=== PATIENT | male | born 1945 | race Caucasian/White ===

== ENCOUNTER → 2023-10-18 09:47 | Outpatient (REF) | payer MEDICARE, OTHER, SELFPAY | LOC: MRI 3T 09:47 | PROVIDERS: ATTENDING PHYSICIAN Urology; FAMILY PHYSICIAN Family Medicine | DX: C61 Malignant neoplasm of prostate (principal) | CPT/HCPCS: 72197; A9575 ==

== ENCOUNTER 2024-06-02 05:06 | Inpatient (IN) | payer MEDICARE, OTHER, SELFPAY ==
[2024-06-02] VITALS (22 sets, daily range): BP systolic 78–158; BP diastolic 36–96; BMI 27.0
--- NOTE | 2024-06-02 04:03 | EDRN ---
0402 epinephrine given
0403 bicarb given; Dioni machine stopped, no pulse - Dioni machine restarted
--- NOTE | 2024-06-02 04:05 | EDRN ---
Dr Cruz attempting to intubate pt
--- NOTE | 2024-06-02 04:09 | EDRN ---
Dioni machine stopped, pt has pulse.
--- NOTE | 2024-06-02 04:15 | EDRN ---
No pulses - CPR started
--- NOTE | 2024-06-02 04:17 | EDRN ---
Pt has a pulse
--- NOTE | 2024-06-02 04:19 | EDRN ---
Pt in vfib - shocked at 200J
--- NOTE | 2024-06-02 04:19 | EDRN ---
Shocked at 200J
--- NOTE | 2024-06-02 04:21 | EDRN ---
Pulse obtained by doppler
[2024-06-02 04:26] LABS: Glucose - Point of Care 253 mg/dl (70-99)
--- NOTE | 2024-06-02 04:31 | EDRN ---
Pulse weaker, obtainable by doppler.
[2024-06-02 04:32] LABS: INR 1.03; PT 13.8 Sec (11.4-14.6)
--- NOTE | 2024-06-02 04:32 | EDRN ---
Repeat portable CXR being done
--- NOTE | 2024-06-02 04:34 | EDRN ---
Doppler pulse strong
[2024-06-02 04:35] LABS: Hematocrit 40.7 % (39.0-52.0); Hemoglobin 13.8 g/dL (13.0-18.0); Mean Corp Hgb Conc. 33.9 g/dL (33.0-37.0); Mean Corpuscular Volume 100.2 fL (80.0-94.0); Mean Platelet Volume 9.1 fL (7.4-10.4); Platelet Count 183 10^3/uL (130-400); Red Blood Cell Count 4.06 10^6/uL (4.70-6.10); White Blood Cell Count 8.8 10^3/uL (4.8-10.8)
[2024-06-02 04:39] LABS: O2 Saturation % 91.6 % (94-98); PCO2 70 mmHg (35-48); PO2 86 mmHg (83-108)
[2024-06-02 04:42] LABS: pH 6.96 (7.35-7.45)
[2024-06-02 04:43] LABS: HCO3 15.7 mmol/L (21-28)
--- NOTE | 2024-06-02 04:45 | EDRN ---
Note: when pt's pulse returned, ice packs applied to b/l groin and armpits
[2024-06-02 04:49] LABS: ALT (SGPT) 101 U/L (0-50); AST (SGOT) 129 U/L (17-59); Albumin 3.6 g/dl (3.5-5.0); Alkaline Phosphatase 42 U/L (38-126); Blood Urea Nitrogen 15 mg/dl (9-20); Calcium 8.4 mg/dl (8.4-10.2); Carbon Dioxide 22 mmol/L (22-30); Chloride 100 mmol/L (98-107); Glucose 301 mg/dl (70-99); Potassium 3.1 mmol/L (3.5-5.1); Sodium 146 mmol/L (135-145); Total Bilirubin 0.3 mg/dl (0.2-1.3); Total Protein 5.6 g/dl (6.3-8.2); eGFR > 60.00
[2024-06-02 04:58] LABS: NT-proBNP 25.1 pg/ml; Troponin I 0.012 ng/ml
--- NOTE | 2024-06-02 05:04 | ED.GENMED ---
History of Present Illness
General
Chief Complaint: CODE
Source: family and ambulance crew
Exam Limitations: clinical condition
Time Seen by Provider: 06/02/24 04:13
History of Present Illness
History of Present Illness:
79-year-old male brought into the emergency department and cardiac arrest. According to EMS, patient was 'gurgling' in his sleep. Patient's came into the bathroom and found him unresponsive. called 911 and began CPR. Police came and
continued CPR. EMS was able to secure a Gildardo airway and started the Dioni machine. He received compressions and ACLS meds. Upon arrival he was PEA. ACLS protocols were continued and he was given epinephrine and bicarbonate. He did regain
pulses. We switched the tube from a Gildardo airway to an ET tube. Patient was given epinephrine and an epinephrine drip. He was started on propofol for sedation.
Past History
Past History
ED Past Medical History: HTN and Hypercholesterolemia
ED Past Surgical History: Cholecystectomy and Orthopedic
Social History
Tobacco: Other (Occasional cigar)
Alcohol: Occasional
Drug: None
Personal:
Living: with family
Review of Systems
Review of Systems
Allergies reviewed?: Yes
Unable to obtain full review of systems at this time due to: intubated
Other source history: family and ambulance crew
All Other Systems: Not applicable
Phy Exam
General Physical Exam
General Presentation: severe distress
General age: appears older than age
General Skin: warm and diaphoretic
General Habitus: elderly
Course
Orders/Labs/Results
Orders:
Orders
06/02/24 04:08
Complete Blood Count/With Diff Urgent
Comprehensive Metabolic Panel Urgent
NT-proBNP Urgent
PT/INR [Prothrombin Time] Urgent
Troponin I Urgent
06/02/24 04:10
Chest X-ray Portable [CR Chest Portable - 1 View] Stat
Comment:
Reason For Exam: s/p intubation
Reason Study Needs to be Portable: Unable to Transport
06/02/24 04:13
EKG [Electrocardiogram (*1)] Stat
Reason for Study: Other
Other Reason for Exam: s/p code
06/02/24 04:14
EKG- Treatment ONCE
06/02/24 04:26
EKG [Electrocardiogram (*1)] Stat
Reason for Study: Other
Other Reason for Exam: code
06/02/24 04:27
EKG- Treatment ONCE
06/02/24 04:32
ABG [Arterial Blood Gas] Stat
%Oxygen/Room Air: 100
06/02/24 04:39
Admit/Transfer Patient As Directed
Co-Sign Provider:
Level of Care: Inpatient admission
Assign to:: ICU
Physician / Group: hospitalist
Diagnosis: cardiac arrest
Reason for Hospitalization: cardiac arrest
Expected length of stay greater than two midnights?: Yes
ELOS- Estimated Length of Stay in days: 2
I certify the patient meets the requirements for IP care: Yes
PRN Pain Medication Management As Directed
May give lesser potent ordered pain med per pt: Yes
preference::
Protocol:: Medication orders for pain may be administered in a
manner that supports deferring to patient preference
when the pt is:
- Requesting an ordered lesser potent pain medication.
Least to most potent pain medications are defined
as: acetaminophen < NSAID < tramadol < opioids
(morphine, oxycodone, hydromorphone).
- Requesting a lesser dose of the same medication IF
ORDERED.
- Requesting a less intrusive route of administration
if both routes are prescribed by the provider (PO <
IV).
06/02/24 04:40
Code Status As Directed
Resuscitation Status: Full Code
06/02/24 05:00
Echo 2D MMode Color/Doppler Stat
Reason for Study: cardiac arrest
CT Head W/o Iv Contrast Stat
Comment:
Reason For Exam: change in mental status
Ventilator Initial Settings [RESP] Stat
Tidal Volume: 500
Rate: 16
FIO2: 100
PEEP: 5
Special Instructions: wean FiO2 to 0.3 as tolerated to keep O2 sats > 92%
06/02/24 05:22
0.9% Sodium Chloride 500 ml [Nss] 500 ml IV Q30M
Acetaminophen [Tylenol Oral Solution] 650 mg TUBE NOW STA
Acetaminophen [Tylenol/Feverall] 650 mg RECTAL Q6HPRN PRN
Amiodarone [Cordarone] 900 mg DEXTROSE 5% PVC-free BAG [D5W PVC-free BAG] 500 ml IV PER PROTOCOL
Initial Dose in mg/min:: 1
Duration of initial dose (hours):: 6
Subsequent dose in mg/min:: 0.5
Duration of subsequent dose (hours):: 18
Maximum dose in mg/min:: 1
Hold and notify provider if:: Heart rate < 60 BPM or SBP < 90 mmHg or MAP < 60 mmHg
Buspirone [Buspar] 30 mg TUBE NOW STA
Cisatracurium [Nimbex] 1 mg IV Q1HPRN PRN
Cisatracurium [Nimbex] 200 mg 0.9% Sodium Chloride 100 ml [Nss] 100 ml Empty Viaflex Container 250 ml [Viaflex Empty Container] 0 ml IV PER PROTOCOL
FentaNYL 1,000 MCG/100 ML [Sublimaze] 1,000 mcg in 100 ml IV PER PROTOCOL
Indication:: TTM Shivering Prot Step 2
Begin Infusion:: Other
Begin infusion when:: BSAS >/= 1 15 minutes after indicated step 1 bolus
Goal:: BSAS = 0, pain score </= 1, CPOT 0-2
Maximum dose in mcg/hr:: 300
Initial Dose in mcg/hr:: 25
Initial dose other:: initiate at dose indicated above OR titrate dose by 25 mcg/hr
Titration Instructions:: Titrate every 30 minutes if patient exhibits shivering (BSAS >/= 1) or
Titration Instructions:: signs of pain/discomfort (pain score >/= 2, CPOT >/= 3).
Titration Instructions:: Administer bolus dose and titrate by 25 mcg/hr.
Titration Instructions:: if BSAS >/= 1 30 minutes after beginning infusion with boluses,
Titration Instructions:: Proceed to Step 3. Continue to up titrate fentanyl as needed.
Taper Instructions:: If shivering and pain scores are at goal for 4 consecutive hours (BSAS = 0,
Taper Instructions:: pain score </= 1, CPOT 0-2): Decrease dose by 50 mcg/hr every 2 hours.
Taper Instructions:: When dose </= 50 mcg/hr may turn infusion off and consider as needed
Taper Instructions:: intermittent bolus doses only.
Notify provider:: immediately if pt exhibits: chest wall rigidity, hemodynamic instability,
Notify provider:: agitation/pain despite maximum dosing, pain when RASS below goal.
Additional Instructions:: if receiving sedation continue to up titrate analgesia first when available
Additional Instructions:: Patient MUST be mechanically ventilated.
Fentanyl Citrate/Pf [Sublimaze] 50 mcg IV [id number] PRN
NORepinephrine 4 MG/250 ML [Levophed] 4 mg in 250 ml IV PER PROTOCOL
Initial dose in mcg/min, then titrate:: 2
Titrate to keep:: MAP > 65 mmHg
Titrate by mcg/min:: 1-2 mcg/min
Frequency of titrations (minutes):: 5
Maximum dose in ICU in mcg/min:: 30
Maximum dose in IMU in mcg/min:: 8
Maximum dose in IVU in mcg/min:: 4
Begin to taper infusion when:: Remained at goal for 4hrs
Taper by mcg/min:: 1-2 mcg/min
Frequency of taper (minutes) if patient maintains goal:: 30
Taper to off?: Yes
If infusion off & no longer maintaining goal:: Contact Provider
Propofol 1,000,000 Mcg/100 ml [Diprivan] 1,000,000 mcg in 100 ml IV PER PROTOCOL
Indication:: TTM Shivering Prot Step 3
Begin Infusion:: Other
Begin infusion when:: BSAS >/= 1 30 minutes after beginning Fentanyl infusion with boluses
Goal:: BSAS 0 or RASS 0 to -2
Maximum dose in mcg/kg/min:: 50
Initial Dose in mcg/kg/min:: 10
Initial dose other:: Initiate at dose indicated above OR titrate dose by 5-10 mcg/kg/min
Titration Instructions:: Titrate by 5-10 mcg/kg/min every 5 minutes until BSAS 0 or RASS 0 to -2.
Titration Instructions:: when available, up titrate analgesia first.
Titration Instructions:: If BSAS >/=1 despite Propofol at maximum tolerated dose, proceed to Step 4.
Taper Instructions:: If BSAS or RASS is at or below goal for 4 consecutive hours decrease
Taper Instructions:: dose by 5-10 mcg/kg/min every 2 hours.
Over-sedation Instructions:: If CPOT 0-2 (at goal) AND RASS -3 to -5 (below goal) decrease sedative by
Over-sedation Instructions:: 50% first. If pain score remains at goal and RASS remains below goal in
Over-sedation Instructions:: 1 hour, decrease opioid infusion by 50%.
Notify provider:: immediately if patient exhibits signs/symptoms of propofol-related
Notify provider:: infusion syndrome.
Additional Instructions:: Patient MUST be mechanically ventilated.
06/02/24 05:22
Case Management Consult Once
Case Management Consult: Discharge Planning
Consult Notification Routine
Specialty to Notify: Neurology
Scrap Metal Burner Consult Urgent
Consulting Provider: Luis M Vargas
Was physician already notified: Yes
Reason for consult: cardiac arrest, PEA & VFIB arrest -> TTM
NEUROLOGY CONSULT Routine
Consulting Provider: Azeb Olivarez
Was physician already notified: No
Reason for consult: s/p cardiac arrest, unresponsive, intubated -> TTM
EEG Routine Routine
Reason for Exam: change in mental status
Prealbumin (Transthyretin) Routine
Triglycerides Routine
Comment: baseline levels with propofol infusion
Activity As Directed
Activity Level: Bedrest
Comment: obtain Sport bed, Maintain HOB 30 degrees
Arterial Line As Directed
Bedside Glucose Monitoring As Directed
Frequency: Other frequency
Other frequency: Q1 hour x 4 hours
Additional Instructions:: Contact provider to initiate Critical Care Glycemic Protocol:
- if glucose is greater than or equal to 160 mg/dL for 2 consecutive checks
OR
- if glucose is greater than or equal to 180 mg/dL once:
Catheter- Indwelling As Directed
Reason for insertion: I&O's Critical Care
Comment: temperature sensing Lomeli catheter with hourly urine output
Gastric Lavage As Directed
Route: Nasogastric Tube/ Orogastric Tube
Irrigant: Purified/Distilled Water
Amount in mls: 250-500ml iced water
Remove irrigant after __min: 10
Gastric lavage directions: - Chilled gastric lavage: instill 250-500mL iced water, clamp for 10-15 minutes
then connect gastric tube to suction.
- Repeat for total volume of 30mL/kg. Maximum 3 liters
- Discontinue once TTM device is initiated
Gastrointestinal Tubes As Directed
To suction?: No
Comment: insert nasogastric or orogastric tube
Head of Bed-Restrictions As Directed
Elevation Level: 30 degress
Frequency: At all times
INT (Intravenous Needle Therapy) As Directed
Comment: peripheral IV required, consider 2 peripheral IV lines
Intake/ Output As Directed
Frequency: q1h
Comment: hourly urine output
Neurological Checks As Directed
Frequency: q4h
Additional Instructions:: Obtain baseline, then every 4 hours
Notify MD As Directed
Notify physician if: BSAS >=1 despite maximum tolerated dose of propofol and proceeding to step 4 of shivering
protocol to change pain and sedation orders to deep sedation protocol and discontinue
current Fentanyl and Propofol orders.
Notify MD As Directed
Notify physician if: serum magnesium less than 3.0 mg/dL
Nursing to Place Non Medication Order As Directed
Physician Order: ABG every 12 hours x [address] Non Medication Order As Directed
Physician Order: order each lab below for Urgent every 6 hours x 6
CBC with Diff
Complete Metabolic Panel
Magnesium
Phosphorus
CK
CKMB
Troponin
Lactate
Pneumatic Compression Sleeves As Directed
Type: Knee high
Comment: bilateral
Pre-induction Neuromuscular Assessment As Directed
Pre-induction Neuromuscular Assessments: -Confirm Wen Agitation Sedation Scale (RASS) of -3 to -5
-Document:
--GSC (Fito Coma Scale)
--Corneal reflex
--Train of four
Shivering Protocol for Targeted Temperature Management As Directed
Instructions:: Use stepwise approach for management of shivering.
Bedside shivering assessment score (BSAS) frequency:: Q 30 minutes until target temperature achieved then Q 1
hour and PRN
Step 1:: Fentanyl or Meperidine intermittent bolus doses
If BSAS >=/ 1 15 minutes after bolus(es), proceed to Step 2.
Step 2:: Begin/increase Fentanyl infusion + continue Fentanyl boluses
If BSAS >/= 1 after 2 analgesic bolus doses and Fentanyl infusion on for 30 minutes,
proceed to Step 3.
Step 3:: Begin Propofol infusion + continue Fentanyl infusion + Fentanyl boluses
If BSAS >=/1 despite Propofol at maximum tolerated dose, proceed to Step 4.
Step 4:: NMBA intermittent bolus doses.
Contact provider to update pain and sedation orders/obtain orders for DEEP SEDATION.
If BSAS >/= 1 after 2 NMBA bolus doses within 3 hours, proceed to Step 5.
Step 5:: Begin NMBA infusion + continue NMBA boluses + deep sedation.
Continuous IV analgesia and sedation must be ordered.
Additional Instructions:: When beginning Step 4 (NMBA bolus doses), obtain orders for DEEP SEDATION and
discontinue Fentanyl and Propofol orders from steps 1, 2, and 3.
Skin Care As Directed
Type of Skin Care: skin checks every 2 hours
Specialty Mattress As Directed
Type of Mattress: Other
Other type of speciality mattress: Sport Bed
Targeted Temperature Management Cooling Phase As Directed
Goal Temp:: 91.4 F (33 C)
Directions: - Wrap patient in surface cooling pads and attach to temperature management device.
- Maintain patient at goal temperature for 24 hours.
- Once device is initiated, discontinue use of cooled fluids and gastric lavage unless directed to
continue.
Targeted Temperature Management Normothermia Phase As Directed
Active Normothermia Instructions:: Maintain surface cooling device and set temperature to 97.4 F for 48 hours
post rewarming.
Targeted Temperature Management Rewarming Phase As Directed
Rewarming Directions:: -Increase temp by 0.33 degrees F every hour per automatic rewarming mode until temp
reaches 97.4 degrees F
-If using continuous NMBA, turn off when temperature reaches 97.0 degrees F
-Once normothermia target temperature is achieved, wean sedation to maintain a RASS
level of 0 to -2, refer to Pain, Agitation, Sedation guidelines
-Discontinue previous serial labs then
-CMP, CBC, Mag, Phos, and Lactate every 4 hours x 6
-Stop electrolyte replacement 6 hours prior to rewarming (unless electrolyte levels
critical)
Vital Signs As Directed
Frequency: Other
Additional Instructions:: q30min x4 then q1h including core temp via TTM device
Weight As Directed
Frequency: Daily
DX Deep Vein Thrombosis Video Routine
06/02/24 Breakfast
NPO
Allow oral meds: No
Allow clear liquids: No
NPO with Ice Chips: No
Comment: may receive medications via tube if ordered
Prealbumin (Transthyretin) IN AM
Acetaminophen [Tylenol Oral Solution] 650 mg TUBE Q6
06/02/24 08:00
Buspirone [Buspar] 30 mg TUBE Q8
Carboxymethylcellulose [Refresh Celluvisc Gel] 1 drops OPHTH BID
Heparin 5,000 units SC Q12
Pantoprazole [Protonix IV] 40 mg IV DAILY
06/03/24 06:00
Prealbumin (Transthyretin) IN AM
CR Chest Portable - 1 View DAILY
Comment:
Reason For Exam: cardiac arrest
Reason Study Needs to be Portable: Patient Unstable
06/04/24 06:00
Prealbumin (Transthyretin) IN AM
CR Chest Portable - 1 View DAILY
Comment:
Reason For Exam: cardiac arrest
Reason Study Needs to be Portable: Patient Unstable
06/05/24 06:00
Triglycerides Q3D
Comment: every 72 hours while patient is on propofol
CR Chest Portable - 1 View DAILY
Comment:
Reason For Exam: cardiac arrest
Reason Study Needs to be Portable: Patient Unstable
06/08/24 06:00
Triglycerides Q3D
Comment: every 72 hours while patient is on propofol
06/11/24 06:00
Triglycerides Q3D
Comment: every 72 hours while patient is on propofol
Abnormal Lab Results
06/02/24 06/02/24 06/02/24
04:08 04:24 04:32
RBC 4.06 L 10^6/uL
(4.70-6.10)
MCV 100.2 H fL
(80.0-94.0)
MCH 34.0 H pg
(27.0-31.0)
pH 6.96 L*
(7.35-7.45)
pCO2 70 H mmHg
(35-48)
HCO3 15.7 L* mmol/L
(21-28)
ABG O2 Sat (Measured) 91.6 L %
(94-98)
Sodium 146 H mmol/L
(135-145)
Potassium 3.1 L mmol/L
(3.5-5.1)
Glucose 301 H mg/dl
(70-99)
AST 129 H U/L
(17-59)
ALT 101 H U/L
(0-50)
Total Protein 5.6 L g/dl
(6.3-8.2)
POC Glucose 253 H mg/dl
(70-99)
06/02/24 04:08
06/02/24 04:08
Vital Signs
Initial and Last Documented VS:
Initial Vital Signs
BP
88/57
06/02/24 04:15
Last Documented Vital Signs
Temp Pulse Resp BP Pulse Ox
95.9 F L 93 21 113/73 97
06/02/24 04:41 06/02/24 05:00 06/02/24 04:55 06/02/24 05:00 06/02/24 04:55
Procedures
Intubations
Procedure completed by: me
Method of Intubation: glidescope
Tube size (cm): 7.5
Placement confirmed by: auscutation, CXR, capnography and direct visualization
Breath sounds after intubation: equal
Intubation complications: no complications
MDM/Problems Addressed
Differential Diagnosis Includes:
Pulmonary embolus, ACS, metastatic to, tablet deficiency
Chronic conditions affecting care:
Prostate cancer, high blood pressure, hyperlipidemia, smoker
*EKG
Interpreted by ED Provider?: Yes
EKG Intrepretation Date: 06/02/24
Rate: tachycardiac
Rhythm: sinus tachycardia
Page: left axis deviation
QRS Pattern: right bundle branch block
Ischemia: non-specific ST changes
*County Extension Agent Interpretation
Interpretation: abnormal
Heart Rate: 122
Rhythm: sinus arrhythmia and sinus tachycardia
*Critical Care Note
Total Time (30-74mins, 75-104mins- exclusive of procedures): Critical care statement: (Critical care statement: A total of 40 minutes of critical care time was provided for this patient. This time is separate from time utilized to perform the
aforementioned documented procedures. Aggregate critical care time includes only time during which I was engaged in work directl)
Data Reviewed
Review of Other/Old Records Reveals: Labs and Records
Source: family and ambulance crew
Update Note
Update Note:
Spoke with Dr. Brooke, district captain who agrees with the plan to start cooling protocol. Cooling protocol was started. Patient admitted to the hospital service to the ICU
06/02/[address] scan shows anoxic brain injury
ED Attending Note
-
Portions of this chart may have been created with voice recognition software.� Occasional wrong word or��sound alike� substitutions may have occurred due to the inherent limitations of voice recognition software.
Discharge Plan
Departure
Patient Disposition: Admit
Date of Disposition: 06/02/24
Time of Disposition: 05:14
Admit to: ICU
Presentation/result/management discussed w/ accepting MD/DO: Hospitalist
Condition: Serious
Discharge Problem:
Cardiac arrest
Interventions
Interventions:
*Risk Screen - Suicide Last Done: 06/02/24 04:04
*General Assessment Last Done: 06/02/24 04:04
*Neglect/Abuse Screening Last Done: 06/02/24 04:04
*ED COVID-19 Vaccine History Last Done: 06/02/24 04:04
ED- Cardiac Assessment Last Done: 06/02/24 04:03
ED- Pulmonary Assessment Last Done: 06/02/24 04:03
--- NOTE | 2024-06-02 05:15 | PTCARENOTE ---
Patient received from ED, unresponsive. Pupils pin point, equal and reactive. Posturing noted. NSR on monitor, no edema noted. Blood pressure as documented. Palpable pulses. No edema noted. #8 ETT at 22 cm at the center, AC 16TV 500 FIO2 80%
peep 5. lugs coarse, crackles right base. Salme sump in right nare draining dark brown. Abdomen soft. thermister samriento draining yellow. #18 g in LAC with epi infusing as documneted. #20 g in RAC with Propofol infuisng as documented. CHG bath
given. Sales Training Representative GANG PLANK WORKMAN at bedside
[2024-06-02] MEDS: VERSED 5 MG IV (05:56)
[2024-06-02] MEDS: SUBLIMAZE 50 MCG IV ×4 (05:58→21:08)
[2024-06-02] MEDS: BUSPAR 30 MG TUBE ×3 (06:06→15:31)
[2024-06-02] MEDS: TYLENOL ORAL SOLUTION 650 MG TUBE ×3 (06:06→17:57)
[2024-06-02 06:09] LABS: % Basophils 0.6 % (0-2); % Eosinophils 1.4 % (0-6); % Immature Granulocytes 3.9 % (0-0.5); % Monocytes 5.1 % (1.7-9.3); Absolute Basophils 0.1 10^3/uL (0-0.2); Absolute Eosinophils 0.1 10^3/uL (0-0.7); Absolute Immature Granulocytes 0.3 10^3/uL (0-0.05); Absolute Lymphocytes 5.1 10^3/uL (1.2-3.4); Absolute Monocytes 0.5 10^3/uL (0.1-0.6); Absolute Neutrophils 2.8 10^3/uL (1.4-6.5); Nucleated Red Blood Cells % 1.2 % (-)
[2024-06-02] MEDS: TYLENOL ORAL SOLUTION TUBE (06:11)
[2024-06-02] MEDS: DIPRIVAN 100 IV ×4 (06:12→21:49)
--- NOTE | 2024-06-02 06:24 | W.PN.UPDATE ---
Update Note
Progress Note Update
Operation/Procedure: right radial arterial line placement
Consent for operation or procedure: Emergent need due to patient condition - need for invasive monitoring per protocol
Indications: Hemodynamic monitoring
After properly positioning the patient's wrist in the standard fashion, the site was prepped and draped in a sterile fashion. The radial artery was entered, noting bright red, pulsatile flow. A guidewire was easily inserted, the needle removed,
and the catheter was then placed using the Seldinger technique. The guidewire was removed, with good flow present. The catheter was then connected to the transducer with a good waveform noted. The catheter was secured with suture and an occlusive
dressing was placed after properly cleaning and prepping the site.
Complications: The patient tolerated the procedure well and no complications were noted.
Estimated Blood Loss: minimal
Plan: Arterial line to remain in place for hemodynamic monitoring.
[2024-06-02] MEDS: LEVOPHED 250 IV ×2 (06:34→14:31)
[2024-06-02] MEDS: CORDARONE 103 MG IV (06:35)
[2024-06-02] MEDS: SUBLIMAZE 100 IV ×2 (06:35→21:49)
[2024-06-02 06:51] LABS: B.E. -15.5 mmol/L; O2 Saturation % 99.8 % (94-98); PCO2 39 mmHg (35-48); PO2 319 mmHg (83-108)
[2024-06-02 06:55] LABS: % Basophils 0.6 % (0-2); % Eosinophils 1.3 % (0-6); % Immature Granulocytes 3.3 % (0-0.5); % Lymphocytes 18.5 % (20.5-51.1); % Monocytes 2.7 % (1.7-9.3); % Neutrophils 73.6 % (42.2-75.2); Absolute Basophils 0.1 10^3/uL (0-0.2); Absolute Eosinophils 0.2 10^3/uL (0-0.7); Absolute Immature Granulocytes 0.5 10^3/uL (0-0.05); Absolute Lymphocytes 2.7 10^3/uL (1.2-3.4); Absolute Monocytes 0.4 10^3/uL (0.1-0.6); Absolute Neutrophils 10.8 10^3/uL (1.4-6.5); Hematocrit 41.5 % (39.0-52.0); Hemoglobin 14.6 g/dL (13.0-18.0); Mean Corp Hgb Conc. 35.2 g/dL (33.0-37.0); Mean Corpuscular Volume 96.7 fL (80.0-94.0); Mean Platelet Volume 8.8 fL (7.4-10.4); Nucleated Red Blood Cells % 0.2 % (-); Platelet Count 272 10^3/uL (130-400); Red Blood Cell Count 4.29 10^6/uL (4.70-6.10); Red Cell Dist. Width 13.2 % (11.5-14.5); White Blood Cell Count 14.6 10^3/uL (4.8-10.8)
[2024-06-02 06:56] LABS: pH 7.13 (7.35-7.45)
--- NOTE | 2024-06-02 07:06 | CON.INTV ---
Addendum entered and electronically signed by Rachel Garcia, 06/02/24 13:35:
Add insulin gtt for glycemic control
Original Note:
Consultation
Consultation Request
Date/Time Consultation Requested: 06/02/24
Date/Time Consultation Performed: 06/02/24
Performing Provider: Jose
Reason for Consultation: Cardiac arrest
Medical History
-
History of Present Illness:
Patient is a 79-year-old male with previous history of hypertension, hyperlipidemia presenting from home to ER with unresponsiveness during sleep. Was found by to be gurgling, pulseless and apneic. reportedly was performing CPR, on
arrival by EMS she had discontinued. CPR resumed by EMS, noted to be PEA arrest which then converted to V-fib arrest. Was defibrillated total of 3 times with ROSC prior to transport. ROSC lasted 5 minutes CPR then resumed. Patient reportedly had
a difficult airway, intubations were attempted and route, was not successfully intubated, LMA placed. Upon arrival to ER, patient was continued PEA arrest. ROSC reachieved. Intubated in ER, now on pressors. Admitted to ICU. TTM protocol
initiated.
Past Medical History
Past Medical History: Other (see list below)
Social History
Tobacco: Non-smoker
Alcohol: None
Drug: None
Family History
Family History: Reviewed & Not Pertinent
Allergies / Home Medications
Allergies
Allergy/AdvReac Type Severity Reaction Status Date / Time
erythromycin base Allergy Rash Verified 07/04/23 12:58
Home Medications
�Medication �Instructions �Recorded �Confirmed �Last Taken �Type
atorvastatin 20 mg tablet 20 mg PO QPM 02/20/11 06/02/24 02/19/11 History
amlodipine 5 mg tablet 5 mg PO DAILY 06/02/24 06/02/24 Unknown History
celecoxib 100 mg capsule (Celebrex) 100 mg PO DAILY 06/02/24 06/02/24 Unknown History
hydrochlorothiazide 25 mg tablet 25 mg PO DAILY 06/02/24 06/02/24 Unknown History
irbesartan 300 mg tablet 300 mg PO DAILY 06/02/24 06/02/24 Unknown History
Review of Systems
-
Unable to Obtain full review of systems at this time due to: Acuity and Patient Intubation
History Source: Family, Transfer Record and Physician
Vitals / Labs / Diagnostic Testing
Vital Signs
Temp Pulse Resp BP Pulse Ox
95.3 F L 93 21 113/73 99
06/02/24 06:22 06/02/24 05:00 06/02/24 04:55 06/02/24 05:00 06/02/24 06:59
Laboratory Results
06/02/24 06/02/24 06/02/24
04:08 04:32 06:30
PT 13.8
INR 1.03
pH 6.96 L* 7.13 L*
pCO2 70 H 39
pO2 86 319 H
HCO3 15.7 L* 13.0 L*
O2 Delivery Level
Diagnostic Testing:
Physical Exam
-
HEENT: Normocephalic, Anicteric and Moist Mucous Membranes
Cardiovascular: S1/S2 and Regular Rhythm
Respiratory: Clear, Non-Labored Respirations and Other (ETT)
GI: Soft, Non Distended and Tender
Neurology: Other (sedated/intubated/cooled)
Skin: Dry and Other (cold, under TTM)
General: Comfortable and Other (critically ill, on vent)
Assessment
-
Patient is a 79-year-old male with previous history of hypertension, hyperlipidemia presenting from home to ER with unresponsiveness during sleep. Was found by to be gurgling, pulseless and apneic. reportedly was performing CPR, on
arrival by EMS she had discontinued. CPR resumed by EMS, noted to be PEA arrest which then converted to V-fib arrest. Was defibrillated total of 3 times with ROSC prior to transport. ROSC lasted 5 minutes CPR then resumed. Patient reportedly had
a difficult airway, intubations were attempted and route, was not successfully intubated, LMA placed. Upon arrival to ER, patient was continued PEA arrest. ROSC reachieved. Intubated in ER, now on pressors. Admitted to ICU. TTM protocol
initiated.
Acute cardiac arrest s/p CPR/intubation/Shock x 3, VF/PEA with ROSC
Intubated for airway protection, TTM initiation 06/02/24
Unresponsiveness
Shock on pressors, septic vs cardiogenic
Metabolic acidosis, pH 6.9
Leukocytosis, 14.6
Hypokalemia
Hyperglycemia
Lactic acidosis
Elevated troponin
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
Prostate cancer
History of torn meniscus of right knee
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
Essential (primary) hypertension
Mixed hyperlipidemia
Primary osteoarthritis
Kidney stones
Diverticulosis
Colon/gastric polyps; hyperplastic prepyloric polyp w/ intestinal metaplasia/vascular ectasia in fundus
Bilat inguinal hernia repairs w/ mesh 02/2011 Dr. Rowell
Laminectomy
fx nose repair
cholecystectomy 1997
Plan
s/p cardiac arrest, posturing noted post ROSC
CT Head without acute findings, given prolonged downtime, could be at risk for anoxia
Neuro eval ongoing
TTM management
Pain/sedation: Fent/prop gtt, nimbex and buspar for shivering
RASS goals: -4 to -5 for deep cooling
Hemodynamically unstable, requiring pressors/low dose
Drips: levophed @8, amiodarone gtt
VF arrest reportedly, cards eval/appreciate input
Cardiac history reviewed--HTN
Prior ECHO 2018 reviewed indicating normal function
Repeat ECHO showing RV dysfunction
Add IV heparin without bolus, presumptive PE
Hold home meds while on pressors
Monitor on telemetry
Intubated through cardiac arrest, reportedly difficult airway, LMA -> ETT in ER
No prior known history of lung disease
Vent setting reviewed: AC 500/20/40/5+
Hold on SBT during TTM
Supplemental O2 as indicated to maintain sats > 89%
CXR/CT reviewed indicating no acute findings
No CT for confirmation of PE, can obtain d-dimer/LE duplex
NPO, for now
NGT eventually for meds, hold on feeds
Laboratory Equipment Installer recommendations
Aspiration precautions, HOB > 30 degrees
GI prophylaxis if indicated for mechanical ventilation >48 hours, prior history of GERD, stress ulcer formation in the critically ill
JORGE present, creat bump to 1.4 from 1.2
Could be ATN/prerenal
No known history of renal disease
Void trials
Follow urine output, critical I/Os
Replete electrolytes as needed
Acid/base status: met acidosis, given 1 amp bicarb, started on bicarb gtt
Initial pH 6.9 repeat 7.1, repeat ABG
Serial labs
No signs/symptoms suspicious for infectious etiology at this time
Observe off antibiotics for now
Cultures sent/pending
Blood
MRSA screen negative in past
Follow fever trend, WBC count
Lactate elevated on admission, continue to trend until <2
CBC stable, no signs of bleeding or coagulopathy.
DVT prophylaxis as assessed based on risk, including mechanical SCDs
Can transfuse if indicated for Hb <7, plt < 10
INR WNL
No prior h/o known diabetes or thyroid disease
Monitor accuchecks PRN/SS coverage if needed
Hyperglycemia is noted, likely has diabetes, HbA1c pending
Family Discussions
Overall prognosis appears poor given events, patient remains full code
Updated family at bedside during rounds, patient does have advanced directives indicating he does not wish to be prolonged on mechanical support if his prognosis is poor
I have encouraged them to make a decision on ultimate plan of care should he not recover neurologically
Diagnostic Data
Chest X-Ray: low lung volumes, bilateral patchy opacities, ETT in position, no acute findings
02/20/18- No active cardiopulmonary disease.
CT Scan:
Echo: 02/25/18 - Normal Stress Echocardiogram with normal hemodynamic response to exercise. No ECG or echocardiographic evidence of myocardial ischemia. Good exercise capacity for age.
Overall, low risk stress test. The patient was informed of this test result.
PFT's:
Reports and relevant images were personally reviewed.
-----
Critical Care time 81 mins -- The patient is admitted for acute critical illness for the treatment of vital organ failure and/or prevention of further life-threatening conditions. Total care includes time spent in review of history, physical exam,
medications, hemodynamic/ventilator parameters, laboratory data, imaging and discussion with house staff, pharmacy, respiratory therapy, mold sprayer, and nursing.
[2024-06-02] MEDS: VERSED 2 MG IV (07:11)
[2024-06-02 07:18] LABS: Lactic Acid 11.3 mmol/L (0.7-2.0)
[2024-06-02 07:20] LABS: ALT (SGPT) 202 U/L (0-50); AST (SGOT) 317 U/L (17-59); Alkaline Phosphatase 45 U/L (38-126); Blood Urea Nitrogen 18 mg/dl (9-20); Calcium 7.8 mg/dl (8.4-10.2); Carbon Dioxide 12 mmol/L (22-30); Chloride 105 mmol/L (98-107); Creatine Phosphokinase 424 U/L (55-170); Glucose 281 mg/dl (70-99); Magnesium 1.7 mg/dl (1.6-2.3); Phosphorus 8.2 mg/dl (2.5-4.5); Potassium 3.2 mmol/L (3.5-5.1); Sodium 144 mmol/L (135-145); Total Bilirubin 0.5 mg/dl (0.2-1.3); Total CK 424 U/L (55-170); Total Protein 6.1 g/dl (6.3-8.2); eGFR > 60.00
--- NOTE | 2024-06-02 07:21 | W.PN.UPDATE ---
Update Note
Progress Note Update
Patient arrived post code from the ER. Epi gtt was transitioned to levophed gtt, to support hypotension but heart rate was increasing to 110s tachycardia. Patient having abnormal jerking movements, biting/clamping the ETT. Sedation titrated
propofol, fentanyl bolus and gtt initiated, versed bolus 5mg IV given. Arterial line inserted in the right radial. Amio bolus 150mg IV given and Amio gtt initiated. Discussed case with Dr. Vargas parimutuel ticket checker and agreed with target temperature
management protocol to be started post cardiac arrest (patient has no purposeful movements). Patient's family updated in the waiting room, answered all questions.
Dr. Laureano, interventional radiologist at bedside to place central line access. Chest xray ordered to confirm central line placement.
[2024-06-02 07:24] LABS: APTT 29.6 Sec (23.4-35.0)
--- NOTE | 2024-06-02 07:30 | PTCARENOTE ---
Assumed care of patient. Pt rec'd sedated on ventilator w/ TTM. Unrestrained. Does not make any purposeful movements or follow any commands. Decorticate posturing noted...occasional myoclonic twitching...gazing upward. Tachypnea and increased
BP noted w/ painful stimuli. S1 S2 reg w/ NSR/BBC on monitor. Weak PP....confirmed w/ doppler. No edema. #8ETT 22cm center lip. Vent settings: 20/500/+5/60%...sats 98-99%. Lungs diminished w/ coarse breath sounds throughout. Right nare [place]
(60cm)...draining dark brown. Lomeli draining scant yellow urine. Lomeli care done. Skin WNL except scab on left wrist. IR at bedside to place RIJ TLC...will confirm w/ CXR. VS documented. See TTM documentation. ECHO ordered. Will continue to
monitor closely.
[2024-06-02 07:33] LABS: Triglycerides 304 mg/dl (10-149)
[2024-06-02 07:45] LABS: CKMB 7.7 ng/ml (0.0-2.4)
[2024-06-02 07:50] LABS: Prealbumin (Transthyretin) 35.8 mg/dl (17.6-36.0)
[2024-06-02] MEDS: PROTONIX IV 40 MG IV (07:56)
[2024-06-02] MEDS: NSS (PRESERVATIVE FREE) 10 ML IV (07:56)
[2024-06-02] MEDS: SODIUM BICARBONATE 50 MEQ IV (07:59)
[2024-06-02] MEDS: HEPARIN 5000 UNITS SC (08:05)
[2024-06-02] MEDS: REFRESH CELLUVISC GEL 1 DROPS OPHTH ×2 (08:05→20:55)
[2024-06-02] MEDS: SODIUM BICARBONATE 1150 MEQ IV (08:10)
--- NOTE | 2024-06-02 08:19 | HPS.HSE ---
Family Physician
-
Family Physician: NOT KNOW UNKNOWN - PT DOES
Chief Complaint
-
Cardiac arrest in field
History of Present Illness
This is a 79-year-old with known history of hypertension, hyperlipidemia and stage I prostate cancer not currently requiring any treatment who presents to the emergency department subsequent to cardiac arrest at home while sleeping.
History obtained from family indicates patient has been in usual state of health up until going to sleep the previous evening. According to the spouse while sleeping the patient was making a gurgling sound with apparent agonal breathing. She knew
that they typically snores and is usually able to calm him down by touching him. This time around the patient's gurgling continued that he was not responding to her. According to her she was unable to arouse him and called EMS. She was instructed
to start CPR at that time pending arrival of EMS. She was unable to tell me how long she did she CPR fall. She is unaware whether the patient had any pulse during our attempted CPR.
Patient has no recent episodes of complaint of chest pain, palpitations, lightheadedness or dizziness. He had no recent change in mental status. He had no recent weakness numbness or other focal deficits. He has no recent cough fevers or chills.
Patient had no recent complaints of abdominal pain. He had no episodes of melena or hematochezia. He has had no recent urinary symptoms. He had no recent episodes of lower extremity swelling or tenderness. Patient did drive down to [place] few
weeks ago. After a few weeks in [place], flew back to [place]. Denies any recent hospitalizations. No known prior history of aortic aneurysm or brain aneurysm.
EMS brought patient in with ongoing CPR. No shocks given in the field. In ED had ROSC then lost pulse again as he developed VFIB requiring 2 shocks. Initial ECG before VFIB shows RBBB but no STEMI. Repeat ECG after VFIB shows no STEMI. Xray
without infiltrates. Cardiology notified.
Medical History
Past Medical History
Past Medical History: Reports Cancer (prostate ca), HTN and Hypercholesterolemia
Past Surgical History: Reports None
Social History
Unable to obtain full social history at this time due to: Patient Intubation
Family History
Family History: Unable to Obtain
Allergies / Home Medications
Allergies reflects when Allergies were last updated in [facility].
Home Medications with original date entered in [facility]
Allergy/Medication List:
Allergies
Allergy/AdvReac Type Severity Reaction Status Date / Time
erythromycin base Allergy Rash Verified 07/04/23 12:58
Home Medications
atorvastatin 20 mg tablet 20 mg PO QPM 02/20/11
amlodipine 5 mg tablet 5 mg PO DAILY 06/02/24
celecoxib 100 mg capsule (Celebrex) 100 mg PO DAILY 06/02/24
hydrochlorothiazide 25 mg tablet 25 mg PO DAILY 06/02/24
irbesartan 300 mg tablet 300 mg PO DAILY 06/02/24
Review of Systems
-
History Source: Family
Constitutional: Reports No Symptoms
EENT: Reports No Symptoms
Respiratory: Reports No Symptoms
Cardiac: Reports No Symptoms
Abdomen/GI: Reports No Symptoms
: Reports No Symptoms
Musculoskeletal: Reports No Symptoms
Skin: Reports No Symptoms
Neurological: Reports No Symptoms
Endocrine: Reports No Symptoms
Hematologic/Lymphatic: Reports No Symptoms
Psych: Reports No Symptoms
Physical Exam
Vital Signs
Vital Signs
Temp Pulse Resp BP Pulse Ox
94.6 F L 93 21 113/73 99
06/02/24 07:52 06/02/24 05:00 06/02/24 04:55 06/02/24 05:00 06/02/24 07:33
Physical Exam
General: Intubated
HEENT: Anicteric, Moist mucous membranes and Atraumatic
Respiratory: Clear
Cardiac: S1/S2 and Regular Rhythm
GI: Soft, Non Tender, Non Distended and Normal Bowel Sounds
Rectal: Deferred by Provider
Genito-urinary: Lomeli
Musculoskeletal: No Clubbing, No Cyanosis and No Edema
Skin: Warm
Neuro: Sedated
Hematologic/Lymphatic: No Lymphadenopathy
Laboratory Results
-
Laboratory Results
PT 13.8 Sec (11.4-14.6) 06/02/24 04:08
INR 1.03 06/02/24 04:08
APTT 29.6 Sec (23.4-35.0) 06/02/24 04:08
pH 7.13 (7.35-7.45) L* 06/02/24 06:30
pCO2 39 mmHg (35-48) 06/02/24 06:30
pO2 319 mmHg (83-108) H 06/02/24 06:30
HCO3 13.0 mmol/L (21-28) L* 06/02/24 06:30
Lactic Acid 11.3 mmol/L (0.7-2.0) H* 06/02/24 06:30
Total Bilirubin 0.5 mg/dl (0.2-1.3) 06/02/24 06:30
AST 317 U/L (17-59) H 06/02/24 06:30
ALT 202 U/L (0-50) H 06/02/24 06:30
Alkaline Phosphatase 45 U/L (38-126) 06/02/24 06:30
Troponin I 2.280 ng/ml H* D 06/02/24 06:30
Data Reviewed
-
Diagnostic Radiology: Image Personally Visualized and interpreted
Medical Tests (Nuc Med, Echo, EKG etc): Image Personally Visualized and interpreted
Lab Data: Labs Reviewed by me
Impression/Plan
-
IMPRESSION:
79 M with h/o HTN, HLD and prostate CA presenting to ED in cardiac arrest. Went to sleep in normal state of health and arose to his agonal breathing at night. Unclear down time. No STEMI. Initial troponin 0.012 before defibrillation. Labs
benign before defibrillation. Post VFIB and shock, ECG w/o STEMI but trop now elevated. No obvious etiology per past medical history with wide range on differential however initial evaluation appears to rule out a primary massive IN or coronary
dissection. No obvious infection. Primary arrhythmia, dissection, PE, CVA, seizure, remain in differential.
PLAN:
1. Cardiac Arrest
- admit to icu
- vent management, sedation per protocol
- initiate TTM to 33C per protocol
- s/p 2 L bolus, levophed to keep MAP > 60
- aspirin now, check echo, troponin,
- AC per cardiology
- amio gtt
- cardiology consult and ischemic testing per cards
- CT head shows anoxic brain, eeg, neuroconsulted
- consider CT PE/dissection study.
- choir director consulted
Code Status Full
--- NOTE | 2024-06-02 08:51 | CON.CAR ---
Addendum entered and electronically signed by Abilio Calderon MD 06/02/24 09:35:
Following the above note I reviewed a echocardiogram which was a technically difficult study with limited images. Echo contrast was used to try to optimize image quality. Overall left ventricular function appears preserved with estimated ejection
fraction 55 to 60%. Full wall motion analysis is limited due to limited data image quality. In the subcostal views the RV appears dilated and relatively hypokinetic..
Based on the above would consider pulmonary embolism.
Information relayed to pulmonary/critical care and hospitalist
Original Note:
Consultation
Consultation Request
Date/Time Consultation Requested: 06/02/2024 8 AM
Date/Time Consultation Performed: 06/02/2024 8 AM
Requesting Provider: Hospitalist
Performing Provider: Dr. Calderon
Reason for Consultation: Byc-bd-ndcitelp arrest
Medical History
-
History of Present Illness:
79-year-old male. Admitted with lek-hi-qlablifb arrest currently intubated in the ICU on targeted temperature management protocol. Patient unable to provide history additional history obtained in review of records and discussion with staff. ER
records suggest patients noted he was breathing funny and he was unresponsive. EMS called. (Patient started CPR under the direction of EMS when she called but then left bedside to open door for police ). Police and EMS pulled patient off
bed to perform CPR on the floor . EMS notes suggested that patient was defibrillated a total of 3 times having ROSC prior to transport ROSC lasted 5 minutes and CPR was then continued. Intubations were obtained but difficult airway per report. An
airway was placed and patient was ventilated using that. After patient was in ambulance was noted to be PEA. ER notes suggest patient was PEA on arrival But eventually return of circulation. Patient currently on IV amiodarone, Levophed,
propofol and fentanyl.
Total time down unclear. EMS notes state that the initial event had occurred 5 to 10 minutes prior to their arrival. EMS record states unit notified at 3:21. Lab draw in ER4:08 ECG 4:13
Note suggested patient had a DNR order but the did not feel that it was meant for a time like this.
Initial ECG with sinus rhythm right bundle branch block wide QRS possible prior IMI. And prolonged QTc
Past Medical History
Past Medical History: Other ( hypertension and hypercholesterolemia.)
Past Surgical History: Cholecystectomy
Social History
Tobacco: Other (Unable to obtain smoking history or any additional social history patient unresponsive.)
Family History
Family History: Unable to Obtain (Patient currently unresponsive)
Allergies / Home Medications
Allergy/AdvReac Type Severity Reaction Status Date / Time
erythromycin base Allergy Rash Verified 07/04/23 12:58
�Medication �Instructions �Recorded �Confirmed �Type
atorvastatin 20 mg tablet 20 mg PO QPM 02/20/11 06/02/24 History
amlodipine 5 mg tablet 5 mg PO DAILY 06/02/24 06/02/24 History
celecoxib 100 mg capsule (Celebrex) 100 mg PO DAILY 06/02/24 06/02/24 History
hydrochlorothiazide 25 mg tablet 25 mg PO DAILY 06/02/24 06/02/24 History
irbesartan 300 mg tablet 300 mg PO DAILY 06/02/24 06/02/24 History
Review of Systems
-
Unable to obtain full review of systems at this time due to: Patient Intubation
Physical Exam
Vital Signs
Temp Pulse Resp BP Pulse Ox
93.0 F L 93 21 113/73 98
06/02/24 08:22 06/02/24 05:00 06/02/24 04:55 06/02/24 05:00 06/02/24 08:00
Lab Results
Troponin I 2.280 ng/ml H* D 06/02/24 06:30
Keh-K-Fbbnlopzohq Pept 25.1 pg/ml 06/02/24 04:08
Physical Exam
General: Other (Vented sedated)
HEENT: Normocephalic, Anicteric and Other (ET tube in place external ear and nose exam unremarkable)
Respiratory: Other (Clear vented breath sounds anteriorly with no wheezes or rhonchi)
Cardiac: Regular Rhythm (No murmur auscultated)
GI: Soft, Distended and Other (No hepatosplenomegaly noted)
Musculoskeletal: No Clubbing, No Cyanosis and No Edema
Skin: Warm
Neuro: Other (Vented and sedated)
Psych: Other (Unable to assess currently unresponsive)
Impression / Plan
-
Wbx-kr-gjbncaqj arrest. Primary event not clear. Sounds as if patient was initially noted to have agonal respirations and was unresponsive. Pulseless and apneic on arrival of EMS and based on EMS records did receive shocks x 3 with brief ROSC but
then PEA when an ambulance and also reported to be PEA on arrival.. Total downtime unclear. Appears the notification time listed on the EMS report and the initial records in the ER or about 45 minutes apart
-Will try to obtain additional data regarding patient's presentation
-Await echo
-Continue supportive treatment
-Targeted temperature management as directed by primary team
-Continue to assess mental status.
-Continue Amio considering report of defibrillation's in field.
.
Hypotension. Postresuscitation. On Levophed 8. Systolic blood pressure in the 130s.
-Wean as tolerated
.
Abnormal troponin. 2.2. Exact etiology unclear. No ST elevation noted on initial ECG. Elevation may be consistent with duration of arrest.
-Repeat ECG
-Continue supportive treatment
-Troponin
-Echo
.
Lactic acidosis.. Lactic acid level 11.3. Patient currently on bicarbonate drip. Additional management being directed by critical care team
.
Mental status. Full downtime unclear. Currently sedated and receiving targeted temperature management.
-Will continue to assess as the above protocol is completed
.
RBBB- Chronic also noticed in 2018
Critical care 50 min
Data Reviewed
-
EKG: Report Reviewed by me
Radiology: Report Reviewed by me
Medical Tests (Nuc Med, Echo etc): Report Reviewed by me
Labs: Labs Reviewed by me and Discussed with Nurse
--- NOTE | 2024-06-02 08:53 | CON.NEURO ---
Neuro Assessment/Plan
Assessment
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
Prognosis is fair to poor based on lack of recovery while return of spontaneous circulation, significant changes on CT of head which are suggestive of diffuse injury, presence of up beating nystagmus which is suggestive of posterior circulation
injury.
Unfortunately, best prognosis will be given 72 hours after initial injury.
Plan
Attempt to reduce sedation when possible
Check blood work for additional metabolic abnormalities
Bedside greater than 1 hour EEG to better determine patient's prognosis
No indication at this time for the patient to initiate antiseizure medication
MRI of brain when patient is stable to help with prognosis
Will follow
Consultation
Order
Date of Consultation: 06/02/24
Requesting Provider: Hospitalists
Reason for Consult: Anoxic encephalopathy
Subjective/Objective
Subjective Data
Date of Service: June 02, 2024
Unknown handed
Patient presented to this hospital's emergency department after cardiac arrest. According to medical records and discussion with professional medical care providers as the patient himself is unable to provide his own medical history, the patient
had been making sounds in his sleep and was found to be unresponsive. CPR was initiated and by report, spontaneous return of circulation took place which was then lost again. When EMS arrived, the patient was given a single round of epinephrine
with downtime estimated at approximately 5 minutes after EMS arrived. Total downtime may have been approximately 10 minutes prior to EMS's arrival patient had 3 episodes of being defibrillated.
Objective Data
Vital Signs
Temp Pulse Resp BP Pulse Ox
33.9 C L 93 21 113/73 98
06/02/24 08:22 06/02/24 05:00 06/02/24 04:55 06/02/24 05:00 06/02/24 08:00
PT 13.8 Sec (11.4-14.6) 06/02/24 04:08
INR 1.03 06/02/24 04:08
APTT 29.6 Sec (23.4-35.0) 06/02/24 04:08
Sodium 144 mmol/L (135-145) 06/02/24 06:30
Potassium 3.2 mmol/L (3.5-5.1) L 06/02/24 06:30
BUN 18 mg/dl (9-20) 06/02/24 06:30
Glucose 281 mg/dl (70-99) H 06/02/24 06:30
Calcium 7.8 mg/dl (8.4-10.2) L 06/02/24 06:30
Phosphorus 8.2 mg/dl (2.5-4.5) H 06/02/24 06:30
Bho-Y-Jtthhgmodvy Pept 25.1 pg/ml 06/02/24 04:08
Patient Allergies
erythromycin base Allergy (Verified 07/04/23 12:58)
Rash
Review of Systems
-
Unable to obtain full review of systems at this time due to: Patient Intubation and Other (Unresponsive)
History Source: Patient
All other systems: Reviewed and negative
Physical Exam
-
General: No Apparent Distress, Intubated and Appears Stated Age
Eyes: Round OU and [place] Conjunctivae; Negative Able to visualize OU
HEENT: Anicteric and Moist Mucous Membranes
Neck: Full Range of Motion
Respiratory: No Dyspnea
Cardiac: No JVD
GI: Non-distended
Skin: Unremarkable
Extremities: No Clubbing, No Cyanosis and No Edema
Psych: Unable to Assess
Extended Neurological Exam
Mood & Affect: Unable to Assess
Attention Span & Concentration: Unresponsive to Verbal Stimuli and Unresponsive to Physical Stimuli; Negative Awake, Alert or Interactive
Memory: Unable to Assess
Involuntary Movement: None
Speech: Unable to Assess
Cranial Nerve II: Left Eye: Unreactive, Unable to Assess Visual Diamond and Other (Pinpoint pupil)
Cranial Nerve II: Right Eye: Unreactive, Unable to Assess Visual Diamond and Other (Pinpoint pupil)
Cranial Nerves III, IV, : Extraocular Movement: Absent Doll's Eyes, Unable to Assess (Ptosis) and Other (Every 2 seconds single up beat conjugate nystagmus)
Cranial Nerve V: Facial Sensation: Unable to Assess
Cranial Nerve VII: Facial Symmetry: Normal Facial Symmetry
Cranial Nerves IX, X: Palate Movement: Unable to Assess
Cranial Nerve XI: Shoulder Shrug: Unable to Assess
Cranial Nerve XII: Tongue Protusion: Unable to Assess
Muscle Strength, Overall: Negative Spontaneously Moves
Muscle Bulk & Tone: Bulk Unremarkable and Tone Unremarkable
Pronator Drift: Unable to Assess
Deep Tendon Reflexes: Trace Throughout
Cold Sensation: Unable to Assess
Vibration Sensation: Unable to Assess
Touch Sensation: Negative Withdrawal to Pain
Coordination: Unable to Assess
Babinski Sign: Absent Bilaterally
Gait & Station: Unable to Assess
Data Reviewed
-
CT Head: Report Reviewed and Image Reviewed
Labs: Report Reviewed
Reviewed with: Physician and Patient
Old Records: Summarized
Medications
-
Active Medications
Generic Name Dose Route Start Last Admin
Trade Name Freq PRN Reason Stop Dose Admin
Acetaminophen 650 mg 06/02/24 06:00 06/02/24 06:11
Acetaminophen (Oral Solution) 650 Mg/20.3 Ml Cup TUBE 06/06/24 05:59 Not Given
Q6 ANGELES
Acetaminophen 650 mg 06/02/24 05:22
Acetaminophen 650 Mg Rectal Suppository RECTAL 06/06/24 05:21
Q6HPRN PRN
if cannot be given via tube
Buspirone HCl 30 mg 06/02/24 08:00 06/02/24 08:05
Buspirone 15 Mg Tablet TUBE 06/30/24 07:59 30 mg
Q8 ANGELES Administration
Carboxymethylcellulose Sodium 1 drops 06/02/24 08:00 06/02/24 08:05
Carboxymethylcellulose Ophth Gel (Celluvisc) Droperette OPHTH 06/30/24 07:59 1 drops
BID ANGELES Administration
Cisatracurium Besylate 1 mg 06/02/24 05:22
Cisatracurium (2 Mg/Ml) 20 Mg/10 Ml Vial IV 06/05/24 05:24
Q1HPRN PRN
BSAS >/= 1
Protocol
Fentanyl Citrate 50 mcg 06/02/24 05:22 06/02/24 08:28
Fentanyl (50 Mcg/Ml) 100 Mcg/2 Ml Ampul IV 06/16/24 05:21 50 mcg
[id number] PRN Administration
see protocol
Protocol
Heparin Sodium 5,000 units 06/02/24 08:00 06/02/24 08:05
Heparin 5,000 Units/Ml 1 Ml Vial SC 06/30/24 07:59 5,000 units
Q12 ANGELES Administration
Cisatracurium Besylate 200 mg/ 200 mls @ 0 mls/hr 06/02/24 05:22
Sodium Chloride 100 ml/ IV
Device PER PROTOCOL ANGELES
Protocol
Per Protocol
Amiodarone HCl 900 mg/ 518 mls @ 0 mls/hr 06/02/24 05:22
Dextrose/Water IV 06/03/24 05:24
PER PROTOCOL ANGELES
Protocol
Per Protocol
Propofol 1,000,000 mcg in 100 mls @ 0 mls/hr 06/02/24 05:22 06/02/24 06:12
Diprivan IV 100 mls
PER PROTOCOL ANGELES Administration
Protocol
Per Protocol
Norepinephrine Bitartrate 4 mg in 250 mls @ 0 mls/hr 06/02/24 05:22 06/02/24 06:34
Levophed IV 250 mls
PER PROTOCOL ANGELES Administration
Protocol
Per Protocol
Fentanyl Citrate 1,000 mcg in 100 mls @ 0 mls/hr 06/02/24 05:22 06/02/24 06:35
Sublimaze IV 100 mls
PER PROTOCOL ANGELES Administration
Protocol
Per Protocol
Sodium Bicarbonate 150 meq/ 1,150 mls @ 150 mls/hr 06/02/24 07:30 06/02/24 08:10
Sterile Water IV 06/03/24 07:29 1,150 mls
.Q7H40M ANGELES Administration
Midazolam HCl 5 mg 06/02/24 05:48
Midazolam (Preservative Free) 1 Mg/Ml 2 Ml Vial IV 06/30/24 05:47
Q2HPRN PRN
sedation/anxiety/ventsynch
Pantoprazole Sodium 40 mg 06/02/24 08:00 06/02/24 07:56
Pantoprazole Sodium 40 Mg/10 Ml Vial IV 06/30/24 07:59 40 mg
DAILY ANGELES Administration
Sodium Chloride 0 flush 06/02/24 06:00
Sodium Chloride 0.9% (Flush) Syringe IV 06/30/24 05:59
PER PROTOCOL ANGELES
Sodium Chloride 10 ml 06/02/24 08:00 06/02/24 07:56
Sodium Chloride 0.9% (Preservative Free) 10 Ml Vial IV 06/30/24 07:59 10 ml
DAILY ANGELES Administration
Home Medications
�Medication �Instructions �Recorded
atorvastatin 20 mg tablet 20 mg PO QPM 02/20/11
amlodipine 5 mg tablet 5 mg PO DAILY 06/02/24
celecoxib 100 mg capsule (Celebrex) 100 mg PO DAILY 06/02/24
hydrochlorothiazide 25 mg tablet 25 mg PO DAILY 06/02/24
irbesartan 300 mg tablet 300 mg PO DAILY 06/02/24
Past History
Past History
ED Past Medical History: GERD, HTN, Hypercholesterolemia and Other (Hunter's esophagus, nephrolithiasis, diverticulosis, colonic polyposis)
ED Past Surgical History: Cholecystectomy, Orthopedic (Ankle, lumbar laminectomy) and Other (Herniorrhaphy)
Social History
Tobacco: Other (Occasional cigar)
Alcohol: Occasional
Drug: None
Personal:
Living: with family
Family History
Family History: Other (Reviewed and noncontributory)
--- NOTE | 2024-06-02 09:15 | PTCARENOTE ---
SINDI called and notified about pt's admission and TTM. Per SINDI...pt is not a candidate due to hx of prostate cancer.
--- NOTE | 2024-06-02 10:10 | W.PN.UPDATE ---
Update Note
Progress Note Update
79-year-old status post code. History per chart review. found him snoring. she couldn't get a response and called EMS. EMS report found 79-year-old in bed pulseless and apneic. reportedly was doing CPR but was downstairs upon EMS arrival.
CPR was started after taking the patient down to the floor found him breathing 'weird' and checked on him and he was unresponsive. She called 911 and started CPR. EMS reportedly got there and 10 minutes even though there was a DNR
decided to override it and do full code. ACLS was performed patient was defibrillated 3 times and ROSC obtained prior to transport. ROSC lasted for 5 minutes and CPR was continued. Intubations was activated patient had a difficult airway
therefore placed and immediately and ventilated using that. ROSC was not regained until after arrival in the ER. Then lost pulse again requiring 2 shocks for V-fib. Initial ECG was V-fib but no STEMI. Patient was started on IV amiodarone,
Levophed, propofol and fentanyl. Reportedly he did not have any meaningful movements but there was asynchrony with the vent for which she needed sedation.
Patient did drive down to [place] few weeks ago and flew back to [place].
Head CT-no acute changes
chest x-ray-no acute changes.
# Out of Hospital Cardiac arrest
Shockable rhythm requiring 3 shocks in the field and 2 shocks in the ER as far as I can gather from the history and the chart
No STEMI
ECHO - Not a good study -06/02/2024-contrast was used. Ejection fraction 55 to 60%. Wall motion analysis limited. Dilated RV which is hypokinetic.
Lower extremity Dopplers ordered
Elevated troponin likely secondary to CPR and shock-follow
Neurology and cardiology evaluation
On target temperature management protocol now
Wean sedation and evaluate neurostatus after TTM is completed
Unclear downtime. EMS report states 3:21 AM
Chronic right bundle branch block
EEG
Continue amiodarone IV
Rectal aspirin
Stopped fluids with bicarb and continue normal saline
With echo findings we need to consider PE. Dopplers of the lower extremity ordered. With TTM patient cannot be more for a CAT scan
Would heparinize if okay with counter top maker as well. Discussed.
# Acute respiratory failure secondary to above. On vent
# Lactic acidosis-likely secondary to hypotension. Continue to follow # elevated transaminases-likely shock liver. Follow
# Shock-type unclear at present. Continue pressors. Any evidence of infection then start antibiotics for sepsis. No evidence at this point.
# Mild rhabdomyolysis-follow with IV fluids
# Leukocytosis-
Check blood cultures
No acute changes on chest x-ray such as aspiration
# Acute kidney injury-continue IV fluids. Keep MAP over 65 mmHg
# Hypomagnesemia-replace
# Hypokalemia-replace potassium
# Hyperglycemia-on insulin drip. Check hemoglobin A1c
# History of hypertension-was on Norvasc, irbesartan and hydrochlorothiazide as outpatient-hold in the setting of hypotension.
# Hyperlipidemia-Hold atorvastatin given elevation in LFTs
# GERD/Hunter's esophagus-PPI IV
# History of nephrolithiasis
# Stage 1 prostate ca - for 3 years. Being watched.
# Giampr-qqrod-nvsyoelzk counseling when able
# DVT prophylaxis-subcutaneous heparin
# Full code
Discussed with counter top maker and pressroom supervisor
Discussed with patient's on the phone and updated.
Total Critical Care Time 40 minutes. I was immediately available to the patient and staff. I personally examined, reviewed labs, diagnostic images/reports, interpretations, treatment plans, discussed patient care with other providers and family ,
entered orders as appropriate and documented the medical record.
Prognosis guarded given unknown downtime, prolonged time of the code / codes
[2024-06-02 10:48] LABS: % Basophils 0.3 % (0-2); % Eosinophils 0.2 % (0-6); % Immature Granulocytes 0.9 % (0-0.5); % Lymphocytes 4.9 % (20.5-51.1); % Monocytes 4.4 % (1.7-9.3); % Neutrophils 89.3 % (42.2-75.2); Absolute Immature Granulocytes 0.1 10^3/uL (0-0.05); Absolute Lymphocytes 0.8 10^3/uL (1.2-3.4); Absolute Monocytes 0.7 10^3/uL (0.1-0.6); Absolute Neutrophils 14.1 10^3/uL (1.4-6.5); Hematocrit 42.2 % (39.0-52.0); Mean Corp Hgb Conc. 35.5 g/dL (33.0-37.0); Mean Corpuscular Hgb 33.6 pg (27.0-31.0); Mean Corpuscular Volume 94.6 fL (80.0-94.0); Mean Platelet Volume 8.6 fL (7.4-10.4); Nucleated Red Blood Cells % 0.1 % (-); Platelet Count 269 10^3/uL (130-400); Red Blood Cell Count 4.46 10^6/uL (4.70-6.10); White Blood Cell Count 15.8 10^3/uL (4.8-10.8)
[2024-06-02] MEDS: ASPIRIN 300 MG RECTAL (11:01)
[2024-06-02 11:02] LABS: B.E. -0.6 mmol/L; HCO3 24.9 mmol/L (21-28); O2 Saturation % 98.4 % (94-98); PCO2 43 mmHg (35-48); PO2 136 mmHg (83-108); pH 7.37 (7.35-7.45)
[2024-06-02 11:05] LABS: Lactic Acid 3.4 mmol/L (0.7-2.0)
[2024-06-02 11:19] LABS: ALT (SGPT) 247 U/L (0-50); AST (SGOT) 397 U/L (17-59); Alkaline Phosphatase 56 U/L (38-126); Blood Urea Nitrogen 25 mg/dl (9-20); Calcium 8.2 mg/dl (8.4-10.2); Carbon Dioxide 27 mmol/L (22-30); Chloride 100 mmol/L (98-107); Creatine Phosphokinase 776 U/L (55-170); Estimated Creatinine Clearance 42 ml/min; Glucose 265 mg/dl (70-99); Magnesium 1.4 mg/dl (1.6-2.3); Phosphorus 2.8 mg/dl (2.5-4.5); Potassium 3.3 mmol/L (3.5-5.1); Sodium 141 mmol/L (135-145); Total CK 776 U/L (55-170); Total Protein 6.2 g/dl (6.3-8.2); eGFR 51.45
--- NOTE | 2024-06-02 11:33 | CM ---
CM following re: discharge planning.
Discussed in Rounds, reviewed pt's chart, met with pt. pt's spouse and 2 daughters at bedside. Both pt's spouse and daughters presented in Round meeting.
Pt is a 79 year old male, admitted with primary dx of out of hospital Cardiac arrest. Per Rounds meeting, pt remains intubated, continue supportive care. Both pt's spouse and daughters updated on pt's current health condition and prognosis.
Pt lives with spouse in a 2SH, 2 steps to enter, has 2 supportive daughters. Pt has another property in [place]. Pt's spouse described the pt as independent in all areas [employer]. No DME, VN or SNF history.
Pharmacy: [facility].
D/C plan: Uncertain at this time and will de[end on pt's progress.
CM will follow with discharge plan updates as hospitalization progresses
[2024-06-02 11:49] LABS: CKMB 23.6 ng/ml (0.0-2.4)
--- NOTE | 2024-06-02 12:00 | PTCARENOTE ---
No major changes in physical assessment since am. RIJ TLC placed by IR and placed confirmed w/ xray. Levophed, diprivan, fentanyl, and Na+HCO3 gtts infusing...see interventions. Remains unrestrained....occasionally myoclonic twitching noted. BC
x 2 and urine sent. VS documented. Remains on TTM....cooled @ 0936...see intervention. Will continue to monitor closely.
[2024-06-02 12:26] LABS: Erythrocyte Sed Rate 8 mm/hour (0-20)
[2024-06-02 12:39] LABS: Urine Albumin 2+ (Neg - Trace); Urine Bilirubin Negative (Negative); Urine Character Clear (Clear); Urine Color Yellow; Urine Glucose 1+ (Negative); Urine Ketone 1+ (Negative); Urine Leukocyte Negative (Negative); Urine Nitrite Negative (Negative); Urine Occult Blood 4+ (Negative); Urine Urobilinogen Negative (Neg - 1+)
[2024-06-02] MEDS: KCL 260 MEQ IV (12:49)
[2024-06-02] MEDS: MAGNESIUM SULFATE 50 IV (12:49)
[2024-06-02] MEDS: HEPARIN 25000 UNITS/250 ML IV (13:04)
[2024-06-02 13:06] LABS: TSH Reflex To Free T4 2.54 uIU/ml (0.47-4.68)
[2024-06-02] MEDS: NOVOLIN R 3 UNITS IV (13:16)
[2024-06-02 13:21] LABS: Urine Squamous Cell >30 /LPF (Few)
[2024-06-02 13:21] LABS: Glucose - Point of Care 189 mg/dl (70-99)
[2024-06-02 13:25] LABS: Urine Amorphous Seen; Urine Urothelial Cell >30 /LPF (FEW)
[2024-06-02 13:31] LABS: Urine Granular Cast 0-2 /LPF (0); Urine Red Blood Cell >100 /HPF (0-2)
[2024-06-02 13:36] LABS: Urine Bacteria Few (Negative)
[2024-06-02 13:41] LABS: Folate > 20.0 ng/ml (2.76-20); Vitamin B12 > 1000 pg/ml (239-931)
--- NOTE | 2024-06-02 13:53 | PN.DE.MGMTRT ---
Insulin Management
- -
06/02/2024: Diabetes Management Consult
79 year old male with PMH: Essential HTN, HLD, Primary osteoarthritis, Kidney stones, Prostate cancer, Hunter's esophagus w/o dysplasia/Reflux Esophagitis/GERD, H/o torn meniscus of right knee, Diverticulosis, Colon/gastric polyps; hyperplastic
prepyloric polyp w/ intestinal metaplasia/vascular ectasia in fundus, B/L inguinal hernias s/p repairs. Pt was admitted from home due to Out of Hospital Cardiac arrest. Upon arrival to ER, patient was continued PEA arrest. ROSC reachieved, Intubated
in ER.
Pt is Critically ill, on pressors, sedated in ICU, with Hyperglycemia BS > 300, Critical Care Glycemic protocol initiated. Cr 1.4, eGFR 51.47, A1C Pending.
NPO for now, eventual NGT placement for meds only at this time. Glucose 189 to 253--> insulin infusion.
Will cont to follow and assess for readiness to transition off drip.
Diabetes History
- -
Type of Diabetes: 2
Pre-Admission Diabetes Regimen
06/02/24 06/02/24 06/02/24
04:08 06:30 10:39
Creatinine 1.0 1.2 1.4 H
Insulin Pump Settings
IP Diabetes Regimen
06/02/24 06/02/24 06/02/24
04:08 04:24 06:30
Glucose 301 H 281 H
POC Glucose 253 H
06/02/24 06/02/24
10:39 13:09
Glucose 265 H
POC Glucose 189 H
Patient Education
--- NOTE | 2024-06-02 14:00 | PTCARENOTE ---
Pt vomited approximately 15-30mls of dark reddish brown liquid...sal[place] placed on LIWS...will monitor. Poor urine output noted...MD aware. Heparin and insulin gtts added per MD orders.
[2024-06-02 14:25] LABS: Glycohemoglobin (HgbA1c) 5.2 % (4.0-5.6)
[2024-06-02 14:34] LABS: Hemoglobin 14.5 g/dL (13.0-18.0); Mean Corp Hgb Conc. 36.3 g/dL (33.0-37.0); Mean Corpuscular Hgb 33.6 pg (27.0-31.0); Mean Corpuscular Volume 92.8 fL (80.0-94.0); Mean Platelet Volume 8.8 fL (7.4-10.4); Platelet Count 263 10^3/uL (130-400); Red Blood Cell Count 4.31 10^6/uL (4.70-6.10); Red Cell Dist. Width 13.1 % (11.5-14.5); White Blood Cell Count 16.5 10^3/uL (4.8-10.8)
[2024-06-02 14:35] LABS: Glucose - Point of Care 141 mg/dl (70-99)
[2024-06-02] MEDS: LR 1000 IV (14:38)
[2024-06-02 14:55] LABS: D-Dimer 12.62 ug/mlFEU (0.00-0.50)
[2024-06-02 14:55] LABS: Lactic Acid 5.2 mmol/L (0.7-2.0)
[2024-06-02 15:23] LABS: ALT (SGPT) 223 U/L (0-50); AST (SGOT) 452 U/L (17-59); Albumin 3.8 g/dl (3.5-5.0); Alkaline Phosphatase 45 U/L (38-126); Blood Urea Nitrogen 29 mg/dl (9-20); Calcium 7.7 mg/dl (8.4-10.2); Carbon Dioxide 27 mmol/L (22-30); Chloride 100 mmol/L (98-107); Estimated Creatinine Clearance 39 ml/min; Glucose 118 mg/dl (70-99); Potassium 3.3 mmol/L (3.5-5.1); Sodium 140 mmol/L (135-145); Total Bilirubin 1.3 mg/dl (0.2-1.3); Total Protein 6.2 g/dl (6.3-8.2); eGFR 47.36
[2024-06-02 15:39] LABS: Glucose - Point of Care 100 mg/dl (70-99)
--- NOTE | 2024-06-02 16:00 | PTCARENOTE ---
Pt remains intubated, sedated, and on TTM. Insulin gtt off per ...will monitor blood sugars over next few hours and then follow w/ q6h accuchecks. Family at bedside...frequently updated. Emotional support provided. No major changes in
physical assessment. Will continue to monitor closely.
[2024-06-02 16:56] LABS: Glucose - Point of Care 131 mg/dl (70-99)
[2024-06-02] MEDS: KCL 100 IV (17:04)
[2024-06-02 18:23] LABS: B.E. -0.4 mmol/L; HCO3 25.4 mmol/L (21-28); PCO2 45 mmHg (35-48); PO2 139 mmHg (83-108); pH 7.36 (7.35-7.45)
[2024-06-02 18:25] LABS: Glucose - Point of Care 162 mg/dl (70-99)
[2024-06-02 18:25] LABS: % Basophils 0.2 % (0-2); % Eosinophils 0.1 % (0-6); % Immature Granulocytes 0.5 % (0-0.5); % Lymphocytes 5.4 % (20.5-51.1); % Monocytes 8.9 % (1.7-9.3); % Neutrophils 84.9 % (42.2-75.2); Absolute Immature Granulocytes 0.1 10^3/uL (0-0.05); Absolute Lymphocytes 0.9 10^3/uL (1.2-3.4); Absolute Monocytes 1.4 10^3/uL (0.1-0.6); Absolute Neutrophils 13.7 10^3/uL (1.4-6.5); Hematocrit 38.6 % (39.0-52.0); Mean Corp Hgb Conc. 36.3 g/dL (33.0-37.0); Mean Corpuscular Hgb 33.3 pg (27.0-31.0); Mean Corpuscular Volume 91.9 fL (80.0-94.0); Mean Platelet Volume 8.9 fL (7.4-10.4); Nucleated Red Blood Cells % 0.1 % (-); Platelet Count 247 10^3/uL (130-400); Red Cell Dist. Width 13.1 % (11.5-14.5); White Blood Cell Count 16.2 10^3/uL (4.8-10.8)
[2024-06-02 18:38] LABS: Lactic Acid 4.3 mmol/L (0.7-2.0)
[2024-06-02 18:56] LABS: ALT (SGPT) 239 U/L (0-50); AST (SGOT) 492 U/L (17-59); Albumin 3.8 g/dl (3.5-5.0); Alkaline Phosphatase 53 U/L (38-126); Blood Urea Nitrogen 32 mg/dl (9-20); Calcium 7.6 mg/dl (8.4-10.2); Carbon Dioxide 26 mmol/L (22-30); Chloride 100 mmol/L (98-107); Creatine Phosphokinase 1273 U/L (55-170); Estimated Creatinine Clearance 35 ml/min; Glucose 152 mg/dl (70-99); Phosphorus 3.8 mg/dl (2.5-4.5); Potassium 3.6 mmol/L (3.5-5.1); Sodium 139 mmol/L (135-145); Total Bilirubin 1.7 mg/dl (0.2-1.3); Total CK 1273 U/L (55-170); Total Protein 6.1 g/dl (6.3-8.2); eGFR 40.75
[2024-06-02 19:17] LABS: APTT > 200 Sec (23.4-35.0)
[2024-06-02 19:20] LABS: Glucose - Point of Care 166 mg/dl (70-99)
[2024-06-02 19:21] LABS: CKMB 36.9 ng/ml (0.0-2.4)
[2024-06-02 20:23] LABS: Glucose - Point of Care 164 mg/dl (70-99)
--- NOTE | 2024-06-02 20:32 | PTCARENOTE ---
Assumed care of pt at 1900. Received pt intubated, #8 ETT, 22cm at lip, current vent settings AC 20/500/40/5, SpO2 96-97%. Pt sedated on Propofol at 30mcg/kg/min, Fentanyl at 75mcg/hr. Also received pt on Amiodarone at 0.5mg/min, Levophed at
8mcg/min and Heparin at 1400 units/hr. Weaning Levophed as tolerated to keep MAP >65, Heparin titrated per protocol. Pt SR/SB on monitor, high 50s-60s, BBB noted. Physical assessment completed, see nursing shift assessment flowsheet for full
details. TTM continues, to start rewarming in AM on .
[2024-06-03] VITALS: BP 137/110
[2024-06-03] MEDS: BUSPAR 30 MG TUBE ×2 (00:32→08:01)
[2024-06-03] MEDS: TYLENOL ORAL SOLUTION 650 MG TUBE ×3 (00:32→11:55)
[2024-06-03] MEDS: NOVOLOG FLEXPEN-LOW RESISTANCE 1 UNITS SC (00:33)
[2024-06-03 00:36] LABS: % Basophils 0.3 % (0-2); % Immature Granulocytes 1.6 % (0-0.5); % Lymphocytes 5.8 % (20.5-51.1); % Monocytes 5.1 % (1.7-9.3); % Neutrophils 87.2 % (42.2-75.2); Absolute Immature Granulocytes 0.2 10^3/uL (0-0.05); Absolute Lymphocytes 0.8 10^3/uL (1.2-3.4); Absolute Monocytes 0.7 10^3/uL (0.1-0.6); Absolute Neutrophils 12.4 10^3/uL (1.4-6.5); Hematocrit 38.7 % (39.0-52.0); Hemoglobin 14.4 g/dL (13.0-18.0); Mean Corp Hgb Conc. 37.2 g/dL (33.0-37.0); Mean Corpuscular Hgb 34.3 pg (27.0-31.0); Mean Corpuscular Volume 92.1 fL (80.0-94.0); Nucleated Red Blood Cells % 0 % (-); Platelet Count 238 10^3/uL (130-400); White Blood Cell Count 14.2 10^3/uL (4.8-10.8)
[2024-06-03 00:38] LABS: Glucose - Point of Care 150 mg/dl (70-99)
[2024-06-03 00:52] LABS: Lactic Acid 5.7 mmol/L (0.7-2.0)
[2024-06-03 00:57] LABS: ALT (SGPT) 231 U/L (0-50); AST (SGOT) 491 U/L (17-59); Albumin 3.8 g/dl (3.5-5.0); Alkaline Phosphatase 53 U/L (38-126); Blood Urea Nitrogen 36 mg/dl (9-20); Calcium 7.3 mg/dl (8.4-10.2); Carbon Dioxide 20 mmol/L (22-30); Chloride 99 mmol/L (98-107); Creatine Phosphokinase 1518 U/L (55-170); Estimated Creatinine Clearance 31 ml/min; Glucose 151 mg/dl (70-99); Magnesium 1.7 mg/dl (1.6-2.3); Phosphorus 4.8 mg/dl (2.5-4.5); Potassium 3.7 mmol/L (3.5-5.1); Sodium 137 mmol/L (135-145); Total Bilirubin 1.4 mg/dl (0.2-1.3); Total CK 1518 U/L (55-170); Total Protein 6.2 g/dl (6.3-8.2); eGFR 35.66
--- NOTE | 2024-06-03 01:08 | PTCARENOTE ---
Midnight assessment unchanged. Remains on same vent settings. ETT mitchell changed and ETT advanced back to 23cm at lip by RT. Pt weaned off Levophed shortly after midnight. Fentanyl at 100mcg--has required x1 bolus d/t breath stacking and rate was
increased at that time. Propofol now at 20mcg/kg/min. Right IJ TLC dressing changed and biopatch applied. SB 50s on monitor (55-59). SpO2 97%. Continues on TTM.
[2024-06-03] MEDS: LR 1000 IV ×2 (02:40→14:46)
[2024-06-03 04:00] VITALS: BP 96/64
[2024-06-03 04:32] VITALS: BMI 28.1
[2024-06-03] MEDS: CORDARONE 518 MG IV (04:34)
[2024-06-03 04:35] LABS: APTT > 200 Sec (23.4-35.0)
[2024-06-03 04:35] LABS: CKMB 40.7 ng/ml (0.0-2.4)
--- NOTE | 2024-06-03 04:43 | PTCARENOTE ---
Physical and neurological assessments unchanged. SpO2 96-98% on same vent settings. SB 50s on monitor (as low as 54 this shift). Remains of Levophed. Propofol down to 15mcg/kg/min, continues on Fentanyl at 100mcg/hr. Heparin drip on hold at 0435 per
protocol for PTT result, to restart at 800 units/hr at 0635 (see med titration flowsheet). CHG cloth bath done, linens changed. NGT has put out 700mL of brown drainage so far this shift. Continues on TTM.
[2024-06-03] MEDS: SUBLIMAZE 50 MCG IV ×4 (05:16→17:14)
[2024-06-03] MEDS: DIPRIVAN 100 IV (05:25)
--- NOTE | 2024-06-03 06:02 | W.PN.HOSP.TC ---
Today's Communication/Plan
-
Glycemic control
targeted temp mgmt as per ICU
EEG as per Neuro
cont IVF
possible multiorgan failure, suspected anoxic brain injury
poor prognosis
Assessment / Plan
Assessment / Plan
Physical Exam
General: Intubated
HEENT: Anicteric, Moist mucous membranes and Atraumatic, pinpoint pupils b/l with vertical gaze deviation L>R
Respiratory: Clear
Cardiac: S1/S2 sinus jax
GI: Soft, Non Tender, Non Distended, absent bowel sounds
Genito-urinary: [place]
Musculoskeletal: No Clubbing, No Cyanosis and No Edema
Skin: Warm
Neuro: Sedated Nonverbal/noncommunicative
79-year-old status post code. History per chart review. found him snoring. she couldn't get a response and called EMS. EMS report found 79-year-old in bed pulseless and apneic. reportedly was doing CPR but was downstairs upon EMS arrival.
CPR was started after taking the patient down to the floor found him breathing 'weird' and checked on him and he was unresponsive. She called 911 and started CPR. EMS reportedly got there and 10 minutes even though there was a DNR
decided to override it and do full code. ACLS was performed patient was defibrillated 3 times and ROSC obtained prior to transport. ROSC lasted for 5 minutes and CPR was continued. Intubations was activated patient had a difficult airway
therefore placed and immediately and ventilated using that. ROSC was not regained until after arrival in the ER. Then lost pulse again requiring 2 shocks for V-fib. Initial ECG was V-fib but no STEMI. Patient was started on IV amiodarone,
Levophed, propofol and fentanyl. Reportedly he did not have any meaningful movements but there was asynchrony with the vent for which she needed sedation.
Patient did drive down to [place] few weeks ago and flew back to [place].
Head CT-no acute changes
chest x-ray-no acute changes.
# Out of Hospital Cardiac arrest
Shockable rhythm requiring 3 shocks in the field and 2 shocks in the ER as far as I can gather from the history and the chart
No STEMI
ECHO - Not a good study -06/02/2024-contrast was used. Ejection fraction 55 to 60%. Wall motion analysis limited. Dilated RV which is hypokinetic.
Elevated troponin likely secondary to CPR and shock- trended to peak 15.5 since trended down
Neurology and cardiology evaluation appreciated
On target temperature management protocol as per ICU
Wean sedation and evaluate neurostatus after TTM is completed
Unclear downtime. EMS report states 3:21 AM
Chronic right bundle branch block
EEG as per neuro, pending
Continue amiodarone IV
Rectal aspirin as per cardio
Initial acidosis treated with bicarb gtt since switched to NS w/ correction anion gap metabolic acidosis
echo findings concerning for possible PE. Dopplers of the lower extremity neg for DVT. With TTM patient cannot be moved for a CAT scan
cont empiric hep gtt
# Acute respiratory failure secondary to above. On vent as per ICU
# Lactic acidosis-likely secondary to hypotension. Continue to follow # elevated transaminases-likely shock liver. Follow
# Shock-type unclear at present. Continue pressors. Any evidence of infection then start antibiotics for sepsis. No evidence at this point.
# Rhabdomyolysis- cont IV fluids
# Leukocytosis- resolved
follow blood cultures NGTD
No acute changes on chest x-ray such as aspiration
No indication for abx at this time
# Acute kidney injury-continue IV fluids. Keep MAP over 65 mmHg
# Hypomagnesemia-replace
# Hypokalemia-replace potassium
# Hyperglycemia-on insulin drip. Hemoglobin A1c 5.2 non-diabetic
# History of hypertension-was on Norvasc, irbesartan and hydrochlorothiazide as outpatient-hold in the setting of hypotension.
# Hyperlipidemia-Hold atorvastatin given elevation in LFTs
# GERD/Hunter's esophagus-PPI IV
# History of nephrolithiasis
# Stage 1 prostate ca - for 3 years. Being watched.
# Kqrvgl-okiiv-nbkauutth counseling when able
# DVT prophylaxis-subcutaneous heparin
# Full code
Total Critical Care Time 40 minutes. I was immediately available to the patient and staff. I personally examined, reviewed labs, diagnostic images/reports, interpretations, treatment plans, discussed patient care with other providers and
patient's Rachel (patient unable to make decisions for himself at this time) , entered orders as appropriate and documented the medical record.
Prognosis guarded given unknown downtime, prolonged time of the code / codes
Anticipated Discharge: > 48 hours
Subjective/Interval History
-
Date of Service: June 03, 2024
sedated intubated. Vertical gaze deviation. noncommunicative. nonresponsive to verbal stimuli.
Objective Data
-
Labs:
Laboratory Results
06/02/24 06/02/24 06/03/24
18:12 18:13 00:23
WBC 16.2 H 14.2 H
Hgb 14.0 14.4
Hct 38.6 L 38.7 L
Plt Count 247 238
APTT > 200 H*
HCO3 25.4
Sodium 139 137
Potassium 3.6 3.7
Chloride 100 99
Carbon Dioxide 26 20 L
BUN 32 H 36 H
Creatinine 1.7 H 1.9 H
Glucose 152 H 151 H
Calcium 7.6 L 7.3 L
Total Bilirubin 1.7 H 1.4 H
AST 492 H 491 H
ALT 239 H 231 H
Alkaline Phosphatase 53 53
06/03/24 06/03/24 06/03/24
03:36 05:57 12:30
WBC Pending Pending
Hgb Pending Pending
Hct Pending Pending
Plt Count Pending Pending
APTT > 200 H*
HCO3 Pending
Sodium Pending Pending
Potassium Pending Pending
Chloride Pending Pending
Carbon Dioxide Pending Pending
BUN Pending Pending
Creatinine Pending Pending
Glucose Pending Pending
Calcium Pending Pending
Total Bilirubin Pending Pending
AST Pending Pending
ALT Pending Pending
Alkaline Phosphatase Pending Pending
06/03/24
18:30
WBC
Hgb
Hct
Plt Count
APTT
HCO3 Pending
Sodium
Potassium
Chloride
Carbon Dioxide
BUN
Creatinine
Glucose
Calcium
Total Bilirubin
AST
ALT
Alkaline Phosphatase
Vital Signs:
Vital Signs
Temp Pulse Resp BP Pulse Ox
91.1 F L 59 16 96/64 98
06/03/24 05:00 06/03/24 04:30 06/03/24 04:30 06/03/24 04:00 06/03/24 04:43
I&O
06/01/24 06/02/24 06/03/24
06:59 06:59 06:59
Intake Total 1000 / 1074.1 4439.4 / 4439.4
Output Total 2250 / 2250
Balance 1000 / 724.1 2189.4 / 2189.4
[2024-06-03] MEDS: NOVOLOG FLEXPEN-LOW RESISTANCE SC ×2 (06:03→11:50)
[2024-06-03 06:05] LABS: B.E. -5.3 mmol/L; HCO3 21.6 mmol/L (21-28); O2 Saturation % 97.8 % (94-98); PCO2 46 mmHg (35-48); PO2 130 mmHg (83-108); pH 7.28 (7.35-7.45)
[2024-06-03 06:06] LABS: O2 Therapy VENT
[2024-06-03 06:12] LABS: Glucose - Point of Care 128 mg/dl (70-99)
[2024-06-03 06:18] LABS: % Basophils 0.3 % (0-2); % Immature Granulocytes 0.5 % (0-0.5); % Lymphocytes 6.2 % (20.5-51.1); % Monocytes 5.1 % (1.7-9.3); % Neutrophils 87.9 % (42.2-75.2); Absolute Immature Granulocytes 0.1 10^3/uL (0-0.05); Absolute Lymphocytes 0.7 10^3/uL (1.2-3.4); Absolute Monocytes 0.6 10^3/uL (0.1-0.6); Absolute Neutrophils 9.4 10^3/uL (1.4-6.5); Hematocrit 37.7 % (39.0-52.0); Hemoglobin 13.9 g/dL (13.0-18.0); Mean Corp Hgb Conc. 36.9 g/dL (33.0-37.0); Mean Corpuscular Hgb 34.2 pg (27.0-31.0); Mean Corpuscular Volume 92.9 fL (80.0-94.0); Mean Platelet Volume 8.9 fL (7.4-10.4); Nucleated Red Blood Cells % 0.2 % (-); Platelet Count 229 10^3/uL (130-400); Red Blood Cell Count 4.06 10^6/uL (4.70-6.10); White Blood Cell Count 10.7 10^3/uL (4.8-10.8)
[2024-06-03 06:27] LABS: Lactic Acid 5.2 mmol/L (0.7-2.0)
[2024-06-03 06:33] LABS: Prealbumin (Transthyretin) 33.3 mg/dl (17.6-36.0)
[2024-06-03 06:40] LABS: ALT (SGPT) 232 U/L (0-50); AST (SGOT) 505 U/L (17-59); Albumin 3.6 g/dl (3.5-5.0); Alkaline Phosphatase 48 U/L (38-126); Blood Urea Nitrogen 40 mg/dl (9-20); Calcium 7.1 mg/dl (8.4-10.2); Carbon Dioxide 22 mmol/L (22-30); Chloride 100 mmol/L (98-107); Estimated Creatinine Clearance 28 ml/min; Glucose 128 mg/dl (70-99); Magnesium 1.7 mg/dl (1.6-2.3); Phosphorus 5.7 mg/dl (2.5-4.5); Potassium 3.7 mmol/L (3.5-5.1); Sodium 139 mmol/L (135-145); Total Bilirubin 2.6 mg/dl (0.2-1.3); Total Protein 5.9 g/dl (6.3-8.2); eGFR 31.63
[2024-06-03 06:47] LABS: Total CK 2258 U/L (55-170)
--- NOTE | 2024-06-03 07:08 | W.PN.INTV ---
Today's Communication / Plan
Recommendations
Prognosis overall poor, given multiple codes
Repeat labs showing liver/kidney injury
Rewarming phase, will assess mental status and rediscuss with family
They wish for him to remain full code
EEG pending, neuro following
Wean sedation
Further discussions pending evaluations
Assessment
-
Patient is a 79-year-old male with previous history of hypertension, hyperlipidemia presenting from home to ER with unresponsiveness during sleep. Was found by to be gurgling, pulseless and apneic. reportedly was performing CPR, on
arrival by EMS she had discontinued. CPR resumed by EMS, noted to be PEA arrest which then converted to V-fib arrest. Was defibrillated total of 3 times with ROSC prior to transport. ROSC lasted 5 minutes CPR then resumed. Patient reportedly had
a difficult airway, intubations were attempted and route, was not successfully intubated, LMA placed. Upon arrival to ER, patient was continued PEA arrest. ROSC reachieved. Intubated in ER, now on pressors. Admitted to ICU. TTM protocol
initiated.
Acute cardiac arrest s/p CPR/intubation/Shock x 3, VF/PEA with ROSC
Intubated for airway protection, TTM initiation 06/02/24
Unresponsiveness
Shock on pressors, septic vs cardiogenic
Metabolic acidosis, pH 6.9
Leukocytosis, 14.6
Hypokalemia
Hyperglycemia
Lactic acidosis
Elevated troponin
Suspect Ileus
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
Prostate cancer
History of torn meniscus of right knee
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
Essential (primary) hypertension
Mixed hyperlipidemia
Primary osteoarthritis
Kidney stones
Diverticulosis
Colon/gastric polyps; hyperplastic prepyloric polyp w/ intestinal metaplasia/vascular ectasia in fundus
Bilat inguinal hernia repairs w/ mesh 02/2011 Dr. Rowell
Laminectomy
fx nose repair
cholecystectomy 1997
Plan
s/p cardiac arrest, posturing noted post ROSC
CT Head without acute findings, given prolonged downtime, could be at risk for anoxia
Neuro eval ongoing, EEG pending
TTM management, rewarming
Pain/sedation: Fent/prop gtt, nimbex and buspar for shivering
RASS goals: -4 to -5 for deep cooling, reduce need for sedation once warm
Hemodynamically stable, weaning off pressors
Drips: amiodarone gtt, heparin, off insulin
VF arrest reportedly, cards eval/appreciate input
Cardiac history reviewed--HTN
Prior ECHO 2018 reviewed indicating normal function
Repeat ECHO showing RV dysfunction
IV heparin without bolus, presumptive PE/duplex negative
Hold home meds while on pressors
Monitor on telemetry
Intubated through cardiac arrest, reportedly difficult airway, LMA -> ETT in ER
No prior known history of lung disease
Vent setting reviewed: AC 500/20/40/5+
Hold on SBT during TTM
Supplemental O2 as indicated to maintain sats > 89%
CXR/CT reviewed indicating no acute findings
No CT for confirmation of PE, LE duplex--negative, d-dimer 12.6
Can obtain imaging once rewarmed
NPO, for now
NGT eventually for meds, hold on feeds
Food And Beverage Attendant recommendations
Aspiration precautions, HOB > 30 degrees
GI prophylaxis if indicated for mechanical ventilation >48 hours, prior history of GERD, stress ulcer formation in the critically ill
JORGE present, creat bump to 1.4 from 1.2
Could be ATN/prerenal
No known history of renal disease
Void trials
Follow urine output, critical I/Os
Replete electrolytes as needed
Acid/base status: met acidosis, given 1 amp bicarb, started on bicarb gtt
Initial pH 6.9 repeat 7.1, repeat ABG 7.28
Serial labs
No signs/symptoms suspicious for infectious etiology at this time
Observe off antibiotics for now
Cultures sent--no growth thus far
Blood
MRSA screen negative in past
Follow fever trend, WBC count
Lactate elevated on admission, continue to trend until <2
CBC stable, no signs of bleeding or coagulopathy.
DVT prophylaxis as assessed based on risk, including mechanical SCDs
Can transfuse if indicated for Hb <7, plt < 10
INR WNL
No prior h/o known diabetes or thyroid disease
Monitor accuchecks PRN/SS coverage if needed
Hyperglycemia is noted, likely has diabetes, HbA1c 5.2
Weaned off insulin gtt
Family Discussions
Overall prognosis appears poor given events, patient remains full code
Updated family at bedside during rounds, patient does have advanced directives indicating he does not wish to be prolonged on mechanical support if his prognosis is poor
I have encouraged them to make a decision on ultimate plan of care should he not recover neurologically
Diagnostic Data
Chest X-Ray: low lung volumes, bilateral patchy opacities, ETT in position, no acute findings
02/20/18- No active cardiopulmonary disease.
CT Scan:
Echo: 02/25/18 - Normal Stress Echocardiogram with normal hemodynamic response to exercise. No ECG or echocardiographic evidence of myocardial ischemia. Good exercise capacity for age.
Overall, low risk stress test. The patient was informed of this test result.
PFT's:
Reports and relevant images were personally reviewed.
-----
Critical Care time 76 mins -- The patient is admitted for acute critical illness for the treatment of vital organ failure and/or prevention of further life-threatening conditions. Total care includes time spent in review of history, physical exam,
medications, hemodynamic/ventilator parameters, laboratory data, imaging and discussion with house staff, pharmacy, respiratory therapy, wellness nurse rn, and nursing.
Rounds with family at bedside, resident presentation completed, family discussions ongoing.
Subjective Dataa
Subjective Data
Date of Service:
Date of Service: June 03, 2024
Chief Complaint: Manager Hris Follow Up
Subjective:
Remains critically ill, no acute events ON, but he is more rhythmic in movements
Rewarming today
Objective Data
Data Reviewed
Vital Signs / I&O / Oxygen:
Vital Signs
Temp Pulse Resp BP Pulse Ox
91.2 F L 57 20 96/64 97
06/03/24 06:00 06/03/24 06:00 06/03/24 06:00 06/03/24 04:00 06/03/24 06:00
Intake and Output
06/02/24 06/03/24 06/04/24
06:59 06:59 06:59
Intake Total 1000 / 1074.1 4583.7 / 4583.7
Output Total 2450 / 2450
Balance 1000 / 724.1 2133.7 / 2133.7
SaO2 [A/C] 96
SaO2 97
Physical Exam
General: Other (unresponsive, critically ill)
HEENT: Normocephalic, Anicteric and Moist Mucous Membranes
Cardiovascular: S1-S2 and Regular Rhythm
Respiratory: Clear, Non-Labored Respirations and Chest Tube
GI: Soft, Non Distended and Non Tender
Neurology: Unresponsive, Non Verbal and Other (posturing is noted, rhythmic movements at times)
Skin: Dry, Good Color and Other (cool)
Labs/Micro/Reports
Laboratory Results
06/02/24 06/02/24 06/02/24
04:08 10:51 18:12
APTT 29.6
pH 7.37 7.36
pCO2 43 45
pO2 136 H 139 H
HCO3 24.9 25.4
O2 Delivery Level Not Reportable
06/02/24 06/03/24 06/03/24
18:13 03:36 05:57
APTT > 200 H* > 200 H*
pH 7.28 L
pCO2 46
pO2 130 H
HCO3 21.6
O2 Delivery Level Vent
[2024-06-03 07:15] LABS: CKMB 39.6 ng/ml (0.0-2.4)
--- NOTE | 2024-06-03 07:30 | PTCARENOTE ---
Assumed care of patient. Pt rec'd sedated on ventilator w/ TTM...scheduled for rewarming at 0936 per protocol. Unrestrained. Does not make any purposeful movements or follow any commands. Decorticate posturing noted...occasional myoclonic
twitching...upward gaze w/ occasional nystagmus. S1 S2 reg w/ SB/NSR/1st degree AVB/BBC on monitor. Weak PP....confirmed w/ doppler. No edema. #8ETT 23cm right lip. Vent settings: 20/500/+5/40%...sats 97-98%. Lungs diminished but clear.
Right nare [place] (60cm)...draining brown liquid. Lomeli draining scant yellow urine. Lomeli care done. Skin WNL except scab on left wrist. VS documented. Will continue to monitor closely.
[2024-06-03] MEDS: ASPIRIN 300 MG RECTAL (07:56)
[2024-06-03 08:00] VITALS: BP 103/66
[2024-06-03] MEDS: REFRESH CELLUVISC GEL 1 DROPS OPHTH (08:00)
[2024-06-03] MEDS: PROTONIX IV 40 MG IV (08:00)
[2024-06-03] MEDS: NSS (PRESERVATIVE FREE) 10 ML IV (08:00)
--- NOTE | 2024-06-03 08:24 | PN.DE.MGMTRT ---
Insulin Management
- -
06/03/2024: Diabetes Management Consult Follow up
Patient admitted s/p out of hospital cardiac arrest. PMH: Essential HTN, HLD, Primary osteoarthritis, Kidney stones, Prostate cancer, Hunter's esophagus w/o dysplasia/Reflux Esophagitis/GERD, H/o torn meniscus of right knee, Diverticulosis,
Colon/gastric polyps; hyperplastic prepyloric polyp w/ intestinal metaplasia/vascular ectasia in fundus, B/L inguinal hernias s/p repairs. Prior to admission no history of diabetes, A1C 5.2%, cr 2.1, eGFR 31.63.
Upon arrival to ER, patient was continued PEA arrest. ROSC reachieved, Intubated in ER.
Pt continues to be Critically ill, on pressors, sedated in ICU. Was on glycemic protocol, stopped late afternoon yesterday, glucose has ranged 150 to 128 this AM. Patient remains NPO. Requiring no insulin at this time.
Discussed with nurse if glucose trends up she will notify me.
Will follow
Diabetes History
- -
Pre-Admission Diabetes Regimen
06/02/24 06/02/24 06/02/24
10:39 14:23 14:59
Creatinine 1.4 H Cancelled 1.5 H
06/02/24 06/03/24 06/03/24
18:13 00:23 05:57
Creatinine 1.7 H 1.9 H 2.1 H
Lab Results
Hemoglobin A1c Cancelled 06/02/24 12:29
Insulin Pump Settings
IP Diabetes Regimen
06/02/24 06/02/24 06/02/24
10:39 13:09 14:22
Glucose 265 H
POC Glucose 189 H 141 H
06/02/24 06/02/24 06/02/24
14:23 14:59 15:27
Glucose Cancelled 118 H
POC Glucose 100 H
06/02/24 06/02/24 06/02/24
16:45 18:11 18:13
Glucose 152 H
POC Glucose 131 H 162 H
06/02/24 06/02/24 06/03/24
19:08 20:10 00:21
Glucose
POC Glucose 166 H 164 H 150 H
06/03/24 06/03/24 06/03/24
00:23 05:55 05:57
Glucose 151 H 128 H
POC Glucose 128 H
Patient Education
--- NOTE | 2024-06-03 08:25 | W.PN.CD ---
Today's Communication / Plan
-
Stop IV Amio after rewarmed and then monitor for VT/VF
If meaningful neurologic recovery then anticipate Cath/revascularization followed by ICD implant
Consider repeat echo in a few days to better assess RV/LV with more echo windows (cooling prevented complete study)
Consider work up for pulmonary embolism
Over 50 min spent caring for this critically ill patient
Impression / Plan
-
[id number] arrest, paramedics found first rhythm shockable (VT/VF arrest, primary) and report defibrillation times 3 with ROSC but then lost pulse and resumed CPR
- Still cooling
- Stop IV Amio after rewarmed and then monitor for VT/VF
- If meaningful neurologic recovery then anticipate Cath/revascularization followed by ICD implant
- Consider repeat echo in a few days to better assess RV/LV with more echo windows (cooling prevented complete study)
Abnormal head CT concerning for significant hypoxic encephalopathy
Echo findings suggesting: Dilated right ventricle which appears hypokinetic
- Consider evaluation for pulmonary embolus
Acute renal injury/failure
Elevated LFTs
Abnormal troponin, peak 15.5, second troponin
- EKGs w/o ST elevation or evolutionary changes of TX
- Limited echo w/o obvious wall motion
- Conclusion is non-ischemic myocardial injury from his VT/VF arrest and then PEA arrest
Chronic RBBB
HTN
Mixed hyperlipidemia
GERD/Hunter's
Subjective/Interval Hx:
Still cooling, rewarming today. No significant ectopy.
Echo 06/02/2024:
Technically difficult study limited image quality. Due to technical reasons
could not get apical images.
Echo contrast was used
Overall left ventricular function appears preserved with estimated ejection
fraction of 55 to 60%. Wall motion analysis limited due to limited images.
Dilated right ventricle which appears hypokinetic
Compared to prior report from 01/06/2023 dilated hypokinetic RV is now reported
Physical Exam
Vital Signs/Labs
Vital Signs
Temp Pulse Resp BP Pulse Ox
91.4 F L 59 18 96/64 97
06/03/24 08:00 06/03/24 07:30 06/03/24 07:30 06/03/24 04:00 06/03/24 08:00
06/02/24 06/03/24 06/04/24
06:59 06:59 06:59
Actual Weight 80.5 kg 83.887 kg
PT 13.8 Sec (11.4-14.6) 06/02/24 04:08
INR 1.03 06/02/24 04:08
APTT > 200 Sec (23.4-35.0) H* 06/03/24 03:36
Magnesium 1.7 mg/dl (1.6-2.3) 06/03/24 05:57
Triglycerides 304 mg/dl (10-149) H 06/02/24 06:30
06/02/24
04:08
Qkv-O-Kpbqhrijljy Pept 25.1
LAB Results
06/02/24 06/02/24 06/02/24
04:08 06:30 10:39
Troponin I 0.012 2.280 H* D 15.500 H* D
06/02/24 06/02/24 06/03/24
18:01 18:13 00:23
Troponin I Cancelled 15.400 H* 11.800 H*
06/03/24
05:57
Troponin I 10.900 H*
Data Reviewed
-
Date of Service: June 03, 2024
[2024-06-03] MEDS: SUBLIMAZE 100 IV (08:42)
--- NOTE | 2024-06-03 08:48 | W.PN.INTV ---
Today's Communication / Plan
Recommendations
TTM rewarming protocol
Wean off fentyl and add dilaudid as needed
d/c amio ggt after rewarming
EEG report pending
Cont IVF
Assessment
-
79-year-old male with PMHx of hypertension, hyperlipidemia presenting from home to ER with out of hospital cardiac arrest. started CPR then stopped, EMS arrived and restarted CPR. PEA converted to->V.fib ->shock 3x ->ROSC. After 5 min,
return to PEA and CPR restarted. Attempt to intubate in-route to but difficult so LMA placed. Upon arrival to ER, v-fib requiring 2 shocks -> ROSC re-achieved in ED. Pt intubated, admitted to ICU and now on pressors. TTM protocol initiated.
Impression:
#Acute cardiac arrest s/p CPRx3/intubation/Shock x 5, VF/PEA with ROSC
#Mechanical intubation 06/02/24 for airway protection
#TTM initiation 06/02/24
#Shock on pressors, septic vs cardiogenic
#Metabolic acidosis, pH 6.9
#Leukocytosis, 14.6
#Hypokalemia
#Hyperglycemia
#Lactic acidosis
#Elevated troponin
#Elevated LFTs
#Elevated pulm artery pressures with dilated, hypokinetic R ventricle
Conditions present prior to admission:
#Prostate cancer
#History of torn meniscus of right knee
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
#HTN
#HLD
#Primary osteoarthritis
#Kidney stones
#Diverticulosis
#Colon/gastric polyps; hyperplastic prepyloric polyp w/ intestinal metaplasia/vascular ectasia in fundus
#Bilat inguinal hernia repairs w/ mesh 02/2011 Dr. Rowell
#Laminectomy
#fx nose repair
#cholecystectomy 1997
Plan
Neurologic
-TTM
-Potential anoxic brain injury s/p cardiac arrest
-Unresponsive, posturing noted post ROSC
-RASS goal -4 to -5 for TTM
-Fentanyl and propofyl gtt, nimbex and buspar for shivering
-Wean fentanyl and add Dilaudid as needed while rewarming
-fentanyl lipophilic with increased half life the more time it has to re-distribute into fat. Prolonged use may result in increased time sedated making it difficult to asses neurologic status s/p rewarming
-Start warming process today and wean sedation - re-evaluate neuro status post-rewarming
-Head CT no acute findings
-Neurology eval for anoxic brain injury - EEG report pending
-Recommend f/u MRI when able
Cardiovascular
-Cardiogenic vs septic shock
-Acute cardiac arrest s/p CPR x3, intubation, shock x5, VF/PEA with ROSC
-Hemodynamically unstable -> weaned off all pressors as of 12am today
-Amio ggt after VF arrest - will d/c after rewarmed then cont. to monitor for VT/VF
-Troponin peaked 15.4, now 10.9 downtrending likely secondary to stress of arrest
-CK uptrending 1518 ->2258 likely secondary to CPRx3 and cardiac arrest
-CK-MB elevation also secondary to cardiac arrest
-EKG no STEMI, chronic RBBB
-Echo 06/02/24 LVEF 55-60% with dilated right vent, hypokinetic.
-Heparin gtt started for suspected PE with RV strain
-Unable to do CTA to rule out with TTM
-Bilat lower extremity US no DVT
-LR 80mls/hr continue
-Repeat echo in a few days to better assess RV/LV as prior echo poor study due to cooling process
-Anticipate cath/revascularization followed by ICD implant per cardiology if meaningful neurologic recovery
-Cont to monitor on tele
-Multiple rib fractures post CPR
-Hx HTN
-Anti-hypertensives on hold until BP stabilizes and increases
Respiratory
-Mechanical intubation through cardiac arrest - difficult airway LMA EMS -> ETT in ED
-No prior known history of lung disease
-Vent setting 500/20/5/40
-SBT after rewarmed and decreased sedation - perhaps tomorrow
-Supplemental O2 as needed
-Chest x-ray no acute cardiopulmonary findings
-Unable to assess for PE with CTA on TTM - on heparin per above
GI
-NPO while TTM - consider DHT once rewarmed for PO meds and trickle feeds
-Aspiration precautions
-GI ppx for mechanical intubation >48 hrs and hx GERD
-Increased green/brown fluid from nasogastric tube
-400 cc after tube placement for decompression per TTM protocol, another 900cc overnight
-Decreased bowel sounds and no gas passed noted by nurse
-Monitor for ileus - consider ab x-ray
-Elevated LFTs/Bilirubinemia
-Uptrending bib 1.4->2.6, slight increase in AST and ALT
-Likely shock liver
Renal
-JORGE likely pre-renal secondary to cardiac arrest
-Cr uptrending 1.9->2.1
-No hx CKD
-Strict I&O, void trials
-Continue gentle fluids LR 80s
-Metabolic acidosis
-pH 7.36->7.28, not retaining CO2
-LA downtrending 5.7 ->5.2
-Repeat ABG pending
-Electrolyte imbalance
-Hypomagnesemia - Replace as needed
-Hypocalcemia 7.1 corrected for alb 7.4 - ionized calcium pending
-Monitor and replete as needed
ID
-No signs/symptoms of infx at this time
-Leukocytosis resolved
-MRSA swab (-), prelim 24 blood cultures (-), UA no infx, chest x-ray clear
-Unable to asses for fever with TTM
-Downtrending LA 5.7 ->5.2
-Cont to trend until LA <2
-cont to monitor without antibiotics at this time
HemeOnc
-Hg 13.9. stable - transfuse <7
-Ptl 229. Stable - transfuse <15 or if active bleed <50
-DVT currently on heparin gtt and SCDs
Endocrine
-No hx of DM or Thyroid disease
-Insulin ggt for hyperglycemia ->d/c per protocol as BG consistently low
-HgA1c 5.2
-----
Relevant imaging
Chest x-ray 06/03/24 - Decreased lung volumes with minimal left basal atelectasis. No significant pleural effusions or pneumothorax. ET tube 5cm above [place]
Echo 06/02/24
Technically difficult study limited image quality. Due to technical reasons
could not get apical images.
Echo contrast was used
Overall left ventricular function appears preserved with estimated ejection
fraction of 55 to 60%. Wall motion analysis limited due to limited images.
Dilated right ventricle which appears hypokinetic
Compared to prior report from 01/06/2023 dilated hypokinetic RV is now reported
Stress echo 02/25/18
Normal Stress Echocardiogram with normal hemodynamic response to exercise.
No ECG or echocardiographic evidence of myocardial ischemia.
Good exercise capacity for age.
Overall, low risk stress test.
The patient was informed of this test result.
Chest x-ray 02/20/18 - no active cardiopulmonary disease
Subjective Dataa
Subjective Data
Date of Service:
Date of Service: June 03, 2024
Review of Systems
General: Unobtainable - Sedation
Objective Data
Data Reviewed
Vital Signs / I&O / Oxygen:
Vital Signs
Temp Pulse Resp BP Pulse Ox
91.4 F L 59 18 96/64 97
06/03/24 08:00 06/03/24 07:30 06/03/24 07:30 06/03/24 04:00 06/03/24 08:00
Intake and Output
06/02/24 06/03/24 06/04/24
06:59 06:59 06:59
Intake Total 1000 / 1074.1 4583.7 / 4706.0 284.6 / 284.6
Output Total 2450 / 2450 0 / 0
Balance 1000 / 724.1 2133.7 / 2256.0 284.6 / 284.6
SaO2 [A/C] 97
SaO2 97
Physical Exam
General: Other (On vent)
Cardiovascular: S1-S2 and Regular Rhythm
Respiratory: Chest Tube and Other (Coarse breath sounds)
GI: Soft, Non Distended and Normal Bowel Sounds (decreased bowel sounds)
Neurology: Unresponsive
Labs/Micro/Reports
Laboratory Results
06/02/24 06/02/24 06/02/24
10:51 18:12 18:13
APTT > 200 H*
pH 7.37 7.36
pCO2 43 45
pO2 136 H 139 H
HCO3 24.9 25.4
O2 Delivery Level Not Reportable
06/03/24 06/03/24
03:36 05:57
APTT > 200 H*
pH 7.28 L
pCO2 46
pO2 130 H
HCO3 21.6
O2 Delivery Level Vent
--- NOTE | 2024-06-03 08:48 | W.PN.NEURO.1 ---
Today's Communication / Plan
-
Attempt to reduce sedation when possible
Bedside greater than 1 hour EEG to better determine patient's prognosis
MRI of brain when patient is stable to help with prognosis
Neuro Assessment/Plan
Assessment
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
Prognosis is fair to poor based on lack of recovery while return of spontaneous circulation, significant changes on CT of head which are suggestive of diffuse injury, presence of up beating nystagmus which is suggestive of posterior circulation
injury.
Unfortunately, best prognosis will be given 72 hours after initial injury.
Plan
Attempt to reduce sedation when possible
Bedside greater than 1 hour EEG to better determine patient's prognosis
MRI of brain when patient is stable to help with prognosis
Will follow
Subjective/Objective
Subjective Data
Date of Service: June 03, 2024
Patient remains on targeted temperature management, unable to provide his own medical history.
Objective Data
Vital Signs
Temp Pulse Resp BP Pulse Ox
33.0 C L 59 18 96/64 97
06/03/24 08:00 06/03/24 07:30 06/03/24 07:30 06/03/24 04:00 06/03/24 08:00
PT 13.8 Sec (11.4-14.6) 06/02/24 04:08
INR 1.03 06/02/24 04:08
APTT > 200 Sec (23.4-35.0) H* 06/03/24 03:36
Sodium 139 mmol/L (135-145) 06/03/24 05:57
Potassium 3.7 mmol/L (3.5-5.1) 06/03/24 05:57
BUN 40 mg/dl (9-20) H 06/03/24 05:57
Glucose 128 mg/dl (70-99) H 06/03/24 05:57
Calcium 7.1 mg/dl (8.4-10.2) L 06/03/24 05:57
Phosphorus 5.7 mg/dl (2.5-4.5) H 06/03/24 05:57
Huj-Z-Kyxxddpspen Pept 25.1 pg/ml 06/02/24 04:08
Vitamin B12 > 1000 pg/ml (239-931) H 06/02/24 06:30
Patient Allergies
erythromycin base Allergy (Verified 07/04/23 12:58)
Rash
Review of Systems
-
Unable to obtain full review of systems at this time due to: Patient Intubation and Other (Unresponsive)
History Source: Patient
All other systems: Reviewed and negative
Physical Exam
-
General: No Apparent Distress, Intubated and Appears Stated Age
Eyes: Round OU and Tula Conjunctivae; Negative Able to visualize OU
HEENT: Anicteric and Moist Mucous Membranes
Neck: Full Range of Motion
Respiratory: No Dyspnea
Cardiac: No JVD
GI: Non-distended
Extremities: No Clubbing, No Cyanosis and No Edema
Psych: Unable to Assess
Extended Neurological Exam
Mood & Affect: Unable to Assess
Attention Span & Concentration: Unresponsive to Verbal Stimuli and Unresponsive to Physical Stimuli; Negative Awake, Alert or Interactive
Memory: Unable to Assess
Tremor: Hand Tremor Absent and Head Tremor Absent
Involuntary Movement: None
Speech: Unable to Assess
Cranial Nerve II: Left Eye: Unreactive, Unable to Assess Visual Diamond and Other (Pinpoint pupil)
Cranial Nerve II: Right Eye: Unreactive, Unable to Assess Visual Diamond and Other (Pinpoint pupil)
Cranial Nerves III, IV, : Extraocular Movement: Absent Doll's Eyes, Unable to Assess (Ptosis) and Other (Every 2 seconds up beat conjugate nystagmus)
Cranial Nerve V: Facial Sensation: Unable to Assess
Cranial Nerve VII: Facial Symmetry: Normal Facial Symmetry
Cranial Nerve VIII: Hearing: Unable to Assess
Cranial Nerves IX, X: Palate Movement: Unable to Assess
Cranial Nerve XI: Shoulder Shrug: Unable to Assess
Cranial Nerve XII: Tongue Protusion: Unable to Assess
Muscle Strength, Overall: Negative Spontaneously Moves
Muscle Bulk & Tone: Bulk Unremarkable and Tone Unremarkable
Pronator Drift: Unable to Assess
Cold Sensation: Unable to Assess
Vibration Sensation: Unable to Assess
Touch Sensation: Negative Withdrawal to Pain
Coordination: Unable to Assess
Gait & Station: Unable to Assess
Data Reviewed
-
Labs: Report Reviewed
Reviewed with: Physician and Nurse
Old Records: Summarized
Past History
Past History
ED Past Medical History: GERD, HTN, Hypercholesterolemia and Other (Hunter's esophagus, nephrolithiasis, diverticulosis, colonic polyposis)
ED Past Surgical History: Cholecystectomy, Orthopedic (Ankle, lumbar laminectomy) and Other (Herniorrhaphy)
Social History
Tobacco: Other (Occasional cigar)
Alcohol: Occasional
Drug: None
Personal:
Living: with family
Family History
Family History: Other (Reviewed and noncontributory)
Medications
-
Medications:
Generic Name Dose Route Start Last Admin
Trade Name Freq PRN Reason Stop Dose Admin
Acetaminophen 650 mg 06/02/24 06:00 06/03/24 06:03
Acetaminophen (Oral Solution) 650 Mg/20.3 Ml Cup TUBE 06/06/24 05:59 650 mg
Q6 ANGELES Administration
Acetaminophen 650 mg 06/02/24 05:22
Acetaminophen 650 Mg Rectal Suppository RECTAL 06/06/24 05:21
Q6HPRN PRN
if cannot be given via tube
Aspirin 300 mg 06/02/24 11:00 06/03/24 07:56
Aspirin 300 Mg Rectal Suppository RECTAL 06/30/24 10:59 300 mg
DAILY ANGELES Administration
Buspirone HCl 30 mg 06/02/24 08:00 06/03/24 08:01
Buspirone 15 Mg Tablet TUBE 06/30/24 07:59 30 mg
Q8 ANGELES Administration
Carboxymethylcellulose Sodium 1 drops 06/02/24 08:00 06/03/24 08:00
Carboxymethylcellulose Ophth Gel (Celluvisc) Droperette OPHTH 06/30/24 07:59 1 drops
BID ANGELES Administration
Cisatracurium Besylate 1 mg 06/02/24 05:22
Cisatracurium (2 Mg/Ml) 20 Mg/10 Ml Vial IV 06/05/24 05:24
Q1HPRN PRN
BSAS >/= 1
Protocol
Dextrose 12.5 grams 06/02/24 12:29
Dextrose 50% (0.5 Grams/Ml) 50 Ml Syringe IV 06/30/24 12:28
[id number] PRN
BLOOD GLUCOSE < 70
Fentanyl Citrate 50 mcg 06/02/24 05:22 06/03/24 05:16
Fentanyl (50 Mcg/Ml) 100 Mcg/2 Ml Ampul IV 06/16/24 05:21 50 mcg
[id number] PRN Administration
see protocol
Protocol
Heparin Sodium 6,400 units 06/02/24 12:38
Heparin 80 Units/Kg Iv Rebolus IV 06/30/24 12:37
PRN PRN
PTT < OR = 64 seconds
Heparin Sodium 3,200 units 06/02/24 12:38
Heparin 40 Units/Kg Iv Rebolus IV 06/30/24 12:37
PRN PRN
PTT = 64.1 to 72.9 seconds
Cisatracurium Besylate 200 mg/ 200 mls @ 0 mls/hr 06/02/24 05:22
Sodium Chloride 100 ml/ IV
Device PER PROTOCOL ANGELES
Protocol
Per Protocol
Propofol 1,000,000 mcg in 100 mls @ 0 mls/hr 06/02/24 05:22 06/03/24 05:25
Diprivan IV 100 mls
PER PROTOCOL ANGELES Administration
Protocol
Per Protocol
Norepinephrine Bitartrate 4 mg in 250 mls @ 0 mls/hr 06/02/24 05:22 06/02/24 14:31
Levophed IV 250 mls
PER PROTOCOL ANGELES Administration
Protocol
Per Protocol
Fentanyl Citrate 1,000 mcg in 100 mls @ 0 mls/hr 06/02/24 05:22 06/03/24 08:42
Sublimaze IV 100 mls
PER PROTOCOL ANGELES Administration
Protocol
Per Protocol
Lactated Ringer's 1,000 mls @ 80 mls/hr 06/02/24 14:00 06/03/24 02:40
Lr IV 1,000 mls
.[id number] ANGELES Administration
Heparin Sodium 25,000 units in 250 mls @ 0 mls/hr 06/02/24 12:30 06/02/24 13:04
Heparin 25329 Units/250 Ml IV 250 mls
PER PROTOCOL ANGELES Administration
Protocol
Per Protocol
Insulin Aspart 0 units 06/03/24 00:00 06/03/24 06:03
Insulin Aspart Low Resistance 300 Units/3 Ml Pen.Injctr SC 07/01/24 00:00 Not Given
Q6 ANGELES
Protocol
Midazolam HCl 5 mg 06/02/24 05:48
Midazolam (Preservative Free) 1 Mg/Ml 2 Ml Vial IV 06/30/24 05:47
Q2HPRN PRN
sedation/anxiety/ventsynch
Pantoprazole Sodium 40 mg 06/02/24 08:00 06/03/24 08:00
Pantoprazole Sodium 40 Mg/10 Ml Vial IV 06/30/24 07:59 40 mg
DAILY ANGELES Administration
Sodium Chloride 0 flush 06/02/24 06:00
Sodium Chloride 0.9% (Flush) Syringe IV 06/30/24 05:59
PER PROTOCOL ANGELES
Sodium Chloride 10 ml 06/02/24 08:00 06/03/24 08:00
Sodium Chloride 0.9% (Preservative Free) 10 Ml Vial IV 06/30/24 07:59 10 ml
DAILY ANGELES Administration
--- NOTE | 2024-06-03 10:45 | PTCARENOTE ---
ETT advanced by 3cm to 27cm per MD order. CXR done after advancement.
[2024-06-03 12:00] VITALS: BP 106/70
[2024-06-03 12:01] LABS: Glucose - Point of Care 122 mg/dl (70-99)
--- NOTE | 2024-06-03 12:15 | PTCARENOTE ---
Pt remains intubated and sedated. On rewarming phase of TTM...see documentation. No major changes in physical assessment. VS documented. Will continue to monitor closely.
[2024-06-03 13:07] LABS: % Basophils 0.3 % (0-2); % Immature Granulocytes 0.5 % (0-0.5); % Lymphocytes 7.5 % (20.5-51.1); % Monocytes 4.7 % (1.7-9.3); Absolute Lymphocytes 0.6 10^3/uL (1.2-3.4); Absolute Monocytes 0.4 10^3/uL (0.1-0.6); Absolute Neutrophils 6.7 10^3/uL (1.4-6.5); Hematocrit 34.8 % (39.0-52.0); Hemoglobin 12.8 g/dL (13.0-18.0); Mean Corp Hgb Conc. 36.8 g/dL (33.0-37.0); Mean Corpuscular Hgb 33.6 pg (27.0-31.0); Mean Corpuscular Volume 91.3 fL (80.0-94.0); Mean Platelet Volume 9.5 fL (7.4-10.4); Nucleated Red Blood Cells % 0 % (-); Platelet Count 197 10^3/uL (130-400); Red Blood Cell Count 3.81 10^6/uL (4.70-6.10); Red Cell Dist. Width 13.2 % (11.5-14.5); White Blood Cell Count 7.7 10^3/uL (4.8-10.8)
[2024-06-03 13:35] LABS: Lactic Acid 4.7 mmol/L (0.7-2.0)
[2024-06-03 13:36] LABS: ALT (SGPT) 212 U/L (0-50); AST (SGOT) 469 U/L (17-59); Albumin 3.5 g/dl (3.5-5.0); Alkaline Phosphatase 41 U/L (38-126); Blood Urea Nitrogen 43 mg/dl (9-20); Calcium 6.7 mg/dl (8.4-10.2); Carbon Dioxide 20 mmol/L (22-30); Chloride 98 mmol/L (98-107); Estimated Creatinine Clearance 25 ml/min; Glucose 147 mg/dl (70-99); Magnesium 1.5 mg/dl (1.6-2.3); Phosphorus 5.5 mg/dl (2.5-4.5); Potassium 3.9 mmol/L (3.5-5.1); Sodium 136 mmol/L (135-145); Total Bilirubin 3.8 mg/dl (0.2-1.3); Total Protein 5.8 g/dl (6.3-8.2); eGFR 26.94
[2024-06-03 13:37] LABS: Total CK 2994 U/L (55-170)
[2024-06-03 13:45] LABS: APTT > 200 Sec (23.4-35.0)
[2024-06-03] MEDS: MAGNESIUM SULFATE 50 IV (13:57)
--- NOTE | 2024-06-03 14:02 | CM ---
CM following re: discharge planning.
Discussed in Rounds, reviewed pt's chart, met with pt. Pt's family presented in Round meeting.
Pt is s/o out of hospital Cardiac arrest. Per Rounds meeting, pt remains intubated, continue supportive care. Both pt's spouse and daughters updated on pt's current health condition and prognosis.
D/C plan: Uncertain at this time and will depend on pt's progress.
CM will follow with discharge plan updates as hospitalization progresses
[2024-06-03 14:07] LABS: CKMB 37.9 ng/ml (0.0-2.4)
--- NOTE | 2024-06-03 14:21 | EEG.RPT ---
Electroencephalogram Report
Recording
Date of EE06/03/24
Type of EEG: Routine
Length of EEG recordin minutes
Done with Video Recording: Yes
Patient Status: Inpatient
Recording Conditions: Other (Unresponsive)
Hyperventilation Performed: No
Photic Stimulation Performed: Yes
Report
GREATER THAN 1 HOUR ELECTROENCEPHALOGRAPHER IMPRESSION(S):
Severely abnormal study for age based on bihemispheric burst-suppression pattern continuously during the study.
CLINICAL CORRELATION:
This study was suggestive of severe and continuous bihemispheric dysfunction which may have several causes including metabolic and anoxia. The buildup of beta frequency activity and recurrent nature of the study was suggestive of status epilepticus.
Immediate clinical correlation is advised.
METHODS:
A 21 channel digitized electroencephalogram (EEG) was performed in the ICU. The 10/20 international system of electrode placement was used with ECG and lateral/vertical eye movements recorded. Video was recorded. The [employer] quantitative EEG system
was utilized.
Quality of study
Fair to good
Background
No discernible background was demonstrated during the study.
A burst-suppression pattern with suppressions of up to 5 seconds were demonstrated.
Sleep
Unable to discern
Hyperventilation
Not performed
Photic Stimulation
Failed to activate the record
ECG
Normal rhythm
Abnormal activity
Seen continuously during the study was a buildup of approximately 1 to 3 seconds of slower beta activity followed by continuous generalized beta activity lasting for a range of 5 to 12 seconds before a suppression of activity to delta frequency
lasting up to 1-1/2 seconds, usually 1 second, was demonstrated. This pattern was variable as suggested before and always of beta frequency.
--- NOTE | 2024-06-03 14:30 | PTCARENOTE ---
Rhythmic mouth twitching noted...as well as, left lower leg muscle twitching. MD's aware. Keppra ordered per re: EEG results. Pt's and dtr updated on results and prognosis by . Family to discuss goals of care. Emotional
support provided.
[2024-06-03] MEDS: KEPPRA 1000 MG IV (15:01)
--- NOTE | 2024-06-03 15:04 | W.PN.UPDATE ---
Update Note
Progress Note Update
Greater than 1 hour EEG was suggestive of burst suppression pattern and suggestive of possible status epilepticus.
Will initiate levetiracetam, lower dose than planned due to renal insufficiency.
Initiate continuous EEG monitoring.
If decreasing sedation, both fentanyl and propofol, then will need to likely add a second antiseizure medication, dependent on next EEG findings.
Will follow
--- NOTE | 2024-06-03 15:45 | W.PN.UPDATE ---
Update Note
Progress Note Update
Spoke to family about EEG results, indicating status epilepticus
Prognosis very poor
Awaiting further decision making regarding w/d
Care team updated
[2024-06-03 16:00] VITALS: BP 106/68
--- NOTE | 2024-06-03 16:02 | W.PN.UPDATE ---
Update Note
Progress Note Update
EEG noted status epilepticus. Poor prognosis likely anoxic brain injury, discussed with patient's STEF Cox and family who ultimately requested withdrawal of care/comfort measures.
Care updated as per patient's family's wishes
--- NOTE | 2024-06-03 16:30 | PTCARENOTE ---
Pt vomiting coffee ground emesis... at bedside to witness. Oral care provided. Discussed plan of care prior to extubation. Pt's agreeable and would like to proceed w/ extubation once pt appears comfortable. PRN meds to be given...see
MAR. Emotional support provided.
[2024-06-03] MEDS: ATIVAN 2 MG IV (16:38)
[2024-06-03] MEDS: ROBINUL 0.2 MG IV (16:45)
[2024-06-03] MEDS: COMPAZINE 5 MG IV (16:45)
--- NOTE | 2024-06-03 17:15 | RESPNOTE ---
patient extubated for comfort care per MD order. family at bedside.
--- NOTE | 2024-06-03 17:25 | PTCARENOTE ---
Pt extubated @ 1710 w/ at bedside. Pt's jackson flat at 1718 w/ multiple family members in room. notified via TT.
--- NOTE | 2024-06-03 17:30 | PTCARENOTE ---
pronounced ptAlisia DELONG called and paperwork completed.
--- NOTE | 2024-06-03 17:40 | W.PN.DEATH ---
Pronouncement of
-
Called to see patient to pronounce.
No spontaneous heart tones or respirations noted.
Patient not responsive to verbal stimuli.
Patient is pronounced .
Time of : 17:18
Date of : 06/03/24
Cause of : Possibly Pulmonary Embolism vs NSTEMI
Family Notified: Yes
--- NOTE | 2024-06-03 17:48 | PTCARENOTE ---
Addendum entered by Milly Brownlee RN 06/03/24 19:03:
This note is for 1600.
Original Note:
TTM machine stopped. Pt's /family spoke w/ at length about plan of care. Family would like to withdrawal care and place pt on comfort.
--- NOTE | 2024-06-03 18:47 | W.DCSUMMARY ---
Discharge Summary
Discharge Data
Date of Admission: 06/02/24
Date of Discharge: 06/03/24
-
Pending Results: No
Hospital Course
79M status post code. History per chart review. found him snoring. She couldn't get a response, called EMS and started CPR. Patient was defibrillated 3 times and ROSC was obtained prior to transport. ROSC lasted for 5 minutes and CPR was
continued. ROSC was not regained until after arrival in the ER. Then lost pulse again requiring 2 shocks for V-fib. Initial ECG was V-fib but no STEMI. Intubated, Patient was started on IV amiodarone, Levophed, propofol and fentanyl. Reportedly
he did not have any meaningful movements but there was asynchrony with the vent for which he needed sedation. Patient did drive down to [place] few weeks ago and flew back to [place]. Head CT and chest x-ray noted no acute changes. Out of
Hospital Cardiac arrest, Shockable rhythm required 3 shocks in the field and 2 shocks in the ER.
ECHO - Not a good study -06/02/2024-contrast was used. Ejection fraction 55 to 60%. Wall motion analysis limited. Dilated RV which was hypokinetic. Elevated troponin likely secondary to CPR and shock- trended to peak 15.5 since trended down-
though NSTEMI remains possible etiology. Dilated RV along with travel history concerning for possible PE. Neurology and cardiology evaluation appreciated. Patient was treated with target temperature management protocol as per ICU. Weaned
sedation and evaluate neurostatus after TTM was completed. EEG noted status epilepticus for which patient was started on Keppra as per neuro. Continue amiodarone IV
Rectal aspirin as per cardio. Initial acidosis treated with bicarb gtt since switched to NS w/ correction anion gap metabolic acidosis. Dopplers of the lower extremity neg for DVT. Patient was treated with empiric heparin gtt. No significant
improvement in neurologic status was noted, poor prognosis, likely anoxic brain injury, poor prognosis was discussed with patient's family including STEF. Ultimately family opted for withdrawal of care and initiation comfort measures. Care was
updated accordingly and patient soon passed with family at bedside. Condolences were extended.
Discharge Plan
-
Patient Disposition:
Date/Time
Date/Time: 06/03/24 17:18
Discharge Date and Time
Discharge Date/Time: 06/03/24 17:18
Print Language: ROMANSH
--- NOTE | 2024-06-03 19:00 | PTCARENOTE ---
All medical equipment removed and pt taken to [facility].
[2024-06-03] MEDS: BUSPAR TUBE (19:01)
== END 2024-06-03 17:18 | disposition expired | DRG 296 ==
LOC: ICU 05:06
PROVIDERS: Hospitalist; Internal Medicine Critical Care Medicine; ADMITTING PHYSICIAN Internal Medicine; ATTENDING PHYSICIAN Internal Medicine; CONSULT PHYSICIAN Internal Medicine Cardiovascular Disease; EMERGENCY PHYSICIAN Student in an Organized Health Care Education/Training Program; OTHER PHYSICIAN Internal Medicine; OTHER PHYSICIAN Psychiatry & Neurology Neurology
PROC: 5A1945Z Respiratory Ventilation, 24-96 Consecutive Hours (ICD-10-PCS; 2024-06-02)
PROC: 02HV33Z Insertion of Infusion Device into Superior Vena Cava, Percutaneous Approach (ICD-10-PCS; 2024-06-02)
DX: I46.9 Cardiac arrest, cause unspecified (principal); I26.99 Other pulmonary embolism without acute cor pulmonale; J96.00 Acute respiratory failure, unspecified whether with hypoxia or hypercapnia; E87.20 Acidosis, unspecified; R57.9 Shock, unspecified; G93.1 Anoxic brain damage, not elsewhere classified; I5A Non-ischemic myocardial injury (non-traumatic); M62.82 Rhabdomyolysis; N17.9 Acute kidney failure, unspecified; E87.6 Hypokalemia; C61 Malignant neoplasm of prostate; M19.91 Primary osteoarthritis, unspecified site; K57.30 Diverticulosis of large intestine without perforation or abscess without bleeding; I11.9 Hypertensive heart disease without heart failure; K21.9 Gastro-esophageal reflux disease without esophagitis; E83.42 Hypomagnesemia; E78.2 Mixed hyperlipidemia
CPT/HCPCS: 31500; 36556; 51702; 70450; 71045; 76937; 80053; 81003; 81015; 82550; 82553; 82607; 82728; 82746; 82805; 82962; 83036; 83605; 83735; 83880; 84100; 84134; 84443; 84478; 84484; 85025; 85027; 85379; 85610; 85652; 85730; 87040; 93005; 93306; 93970; 94002; 94003; 95813; 99291; C1751; Q9950